=== PATIENT | female | born 1940 | race Caucasian/White ===

== ENCOUNTER 2016-10-21 16:09 | Observation (INO) | payer MEDICARE, OTHER ==
[~2016-10-21] VITALS: Ht 162.6 cm; Wt 80.2 kg
[2016-10-21] MEDS ORDERED: ATENOLOL 25 MG TAB As Ordered ONE (17:35)
[2016-10-21] MEDS ORDERED: LOSARTAN 25 MG TAB As Ordered ONE (17:35)
[2016-10-21 18:04] LABS: BASO # 0.1 K/mm3 (0.0-0.2); BASO % 0.8 % (0.0-1.0); EOS # 0.1 K/mm3 (0.0-0.50); EOS % 1.7 % (0.0-3.0); LARGE UNSTAINED CELL # 0.1 K/mm3 (0.0-0.4); LARGE UNSTAINED CELL % 1.3 % (0.0-4.0); LYMPH # 1.6 K/mm3 (1.5-4.5); LYMPH % 20.3 % (24.0-44.0); MEAN CORPUSCULAR HEMOGLOBIN 27.6 pg (27.0-33.0); MEAN CORPUSCULAR HGB CONC 32.7 g/dl (32.0-36.5); MEAN CORPUSCULAR VOLUME 84.6 fl (80.0-96.0); MONO # 0.5 K/mm3 (0.0-0.8); MONO % 5.9 % (0.0-5.0); NEUTROPHILS # 5.4 K/mm3 (1.8-7.7); PLATELET COUNT, AUTOMATED 373 k/mm3 (150-450); RED CELL DISTRIBUTION WIDTH 13.9 % (11.5-14.5); WHITE BLOOD COUNT 7.7 K/mm3 (4.0-10.0)
--- NOTE | 2016-10-21 18:20 | REPUSA ---
CLINICAL HISTORY: Headache. TECHNIQUE: Multiple axial CT images were obtained through the brain without IV contrast material. COMMENTS: There is normal configuration of sella turcica. There are no intra or extra-axial collections. There is no mass effect or midline shift. There is no evidence of hematoma formation. No hydrocephalus is p resent. The ventricles are symmetrical. No abnormal calcifications are present. There is diffuse age-appropriate cerebellar and cerebral atrophy with proportionally dilated ventricl es and cortical sulci. There are bilateral periventricular and subcortical white matter hypolucencies compatible with mild c hronic microvascular disease. Otherwise, no significant focal abnormalities are seen either in the posterior fossa or supratentoria l compartment. IMPRESSION: 1. Age-appropriate cerebellar and cerebral atrophy. 2. Mild chronic microvascular disease. 3. No evidence of acute intracranial pathology. Thank you for your kind referral of this patient.
[2016-10-21 18:26] LABS: ANION GAP 8 MEQ/L (8-16); BLOOD UREA NITROGEN 11 MG/DL (7-18); CALCIUM LEVEL 8.5 MG/DL (8.8-10.2); CARBON DIOXIDE LEVEL 27 MEQ/L (21-32); CHLORIDE LEVEL 106 MEQ/L (98-107); CREATININE FOR GFR 0.92 MG/DL (0.55-1.02); GLOMERULAR FILTRATION RATE > 60.0 (>39); GLUCOSE, FASTING 96 MG/DL (83-110); SODIUM LEVEL 141 MEQ/L (136-145)
[2016-10-21] MEDS ORDERED: LABETALOL HCL 100 MG/20 ML VIAL As Ordered ONE (19:15)
[2016-10-21] MEDS ORDERED: ZANT1TAB PO ×2 (21:04→21:11)
[2016-10-21] MEDS ORDERED: ATEN25TA PO ×2 (21:04→21:11)
[2016-10-21] MEDS ORDERED: LOSA25TA8 PO ×2 (21:04→21:11)
[2016-10-21] MEDS ORDERED: PROB1TAB PO (21:04)
[2016-10-21] MEDS ORDERED: SYNT100T PO ×2 (21:04→21:11)
[2016-10-21] MEDS ORDERED: PROBCAP14 PO (21:11)
[2016-10-21] MEDS ORDERED: amLODIPine 5 MG TAB PO ONE (21:45)
[2016-10-21] MEDS ORDERED: FAMOTIDINE 20 MG TAB PO PRN (21:45)
[2016-10-21] MEDS ORDERED: hydrALAZINE INJ 20 MG/ML VIAL IV SCH (21:45)
--- NOTE | 2016-10-21 22:10 | HPEPDOC ---
General Date of Admission 10/21/2016 Primary Care Physician: [facility] Attending Physician: AMANDA VINCENT Chief Complaint The patient is a 76-year-old female admitted with a reason for visit of High Blood Pressure. Source: Patient, Family Exam Limitations: No limitations History of Present Illness Ms. Reece is a 76-year-old female with a past history of chronic hypertension and well controlled hypothyroidism who has been suffering from headaches for the past 4 weeks. Originally she presented to her PCPs office, who diagnosed her with hypertension and approximately the 190s/90s. It appears that she has had stable blood pressure for many years prior using just 25 mg of atenolol daily, therefore this seems to have been on precipitated. Originally she was up to 50 mg of atenolol daily for a week, but her pressures were still high in the office, this was split to 25 mg twice a day for a week, but pressures were still high in the office, then losartan 25 mg was also added about one week ago. The losartan was added approximately 1 week ago, but in the past few days in addition to the headaches, now she has had nausea and dry heaves, therefore she decided to come to the emergency department for further evaluation. Her blood pressure in the ED was 215/91, She was given atenolol, losartan, and IV labetalol in the ED with minimal improvement in her blood pressure, and now it is only 191/93 Home Medications Scheduled (Probiotic) 1 Cap Cap 1 CAP PO DAILY (Reported) Atenolol (Atenolol) 25 Mg Tab 25 MG PO BID (Reported) Levothyroxine Sodium (Synthroid) 100 Mcg Tab 100 MCG PO DAILY (Reported) Losartan Potassium (Losartan Potassium) 25 Mg Tab 25 MG PO DAILY (Reported) Scheduled PRN Ranitidine HCl (Zantac) 150 Mg Tab 1 TAB PO DAILY PRN PRN HEARTBURN/INDIGESTION (Reported) Allergies Coded Allergies: Penicillins (Verified Allergy, Mild, HIVES, 12/23/12) Penicillins Cross Reactors (Verified Allergy, Mild, HIVES, 12/23/12) Past Medical History Medical History Chronic essential hypertension Hypothyroidism Occasional GERD Surgical History Hysterectomy in the early Appendectomy Cholecystectomy Pulmonary embolism associated with her hysterectomy, she was on Coumadin for 1 year, she has never had a clot since Family History Family History Mother had a history of breast cancer, at the age of 82. Father had an AR secondary to "leaky valves" he in his early 80s. She has 5 children, 3 girls and 2 boys, all of which are healthy except that one of her daughters at the age of 39 from Jovel sarcoma Social History * Smoker: non-smoker Alcohol: denies Drugs: denies Recent Travel/Sick Contacts: Denies: Recent travel Psychosocial History: No pertinent psych hx Social History She lives at home with her , otherwise she isn't emptying asked her. 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 She does have 1 daughter who still lives in [place] and checks in on her on a regular basis Review of Symptoms Constitutional: Denies: Chills, Fever, Night Sweats Eyes: Denies: Pain, Vision change ENT: Reports: Head Aches, Denies: Dysphagia, Ear Pain Skin: Denies: Breakdown, Lesions, Rash Pulmonary: Denies: Cough, Dyspnea Cardiovascular: Denies: Chest Pain, Edema, Lt Headedness, Orthopnea, Palpitations, Paroxysmal Noc. Dyspnea Gastrointestinal: Reports: Diarrhea (chronic diarrhea many years duration, despite multiple investigations, follows with a tax accounting manager in [place]) , Nausea, Vomiting (dry heaves only), Denies: Abdominal Pain Genitourinary: Denies: Dysuria, Frequency, Incontinence, Retention Hematologic: Denies: Bleeding Excessively, Bruising Musculoskeletal: Denies: Back Pain, Joint Pain, Muscle Pain, Neck Pain, Spasms Neurological: Denies: Change in speech, Confusion, Numbness, Weakness Psych: Reports: Mood Normal, Denies: Depression, Memory Issues Physical Examination General Exam: Positive: Alert, Cooperative, No Acute Distress Eye Exam: Positive: Conjunctiva & lids normal, EOMI, Other Eye Symptoms ( funduscopic exam does not reveal any aneurysms or hemorrhages, no papilledema was appreciated, however the exam was somewhat limited by patient movement), PERRLA, Negative: Sclera icteric ENT Exam: Positive: Atraumatic, Mucous membr. moist/pink, Pharynx Normal Neck Exam: Positive: Supple, Negative: JVD, thyromegaly Chest Exam: Positive: Clear to auscultation, Normal air movement Heart Exam: Positive: Normal S1, Normal S2, Rate Normal, Regular Rhythm, Negative: Murmurs, Rubs Telemetry: Positive: No significant arrhythmia Abdomen Exam: Positive: Normal bowel sounds, Soft, Negative: Hepatospenomegaly Extremity Exam: Positive: Normal pulses, Negative: Clubbing, Cyanosis, Edema Skin Exam: Positive: Nl turgor and temperature, Negative: Breakdown, Lesion Neuro Exam: Positive: Cranial Nerves 3-12 NL, Normal Speech, Normal Tone Psych Exam: Positive: Mental status NL, Mood NL, Oriented x 3 Vital Signs Blood pressure 191/93, pulse 78, respirations 18, temperature 98.4, pulse ox 94 % on room air, weight 84 kg, height 5 feet 4 inches, BMI 32 Laboratory Data Labs 24H Laboratory Tests 2 10/21/16 17:35: Anion Gap 8, White Blood Count 7.7, Red Blood Count 5.05, Hemoglobin 13.9, Hematocrit 42.7, Mean Corpuscular Volume 84.6, Mean Corpuscular Hemoglobin 27.6 , Mean Corpuscular Hemoglobin Concent 32.7, Red Cell Distribution Width 13.9, Platelet Count 373, Neutrophils (%) (Auto) 70.0H, Lymphocytes (%) (Auto) 20.3L, Monocytes (%) (Auto) 5.9H, Eosinophils (%) (Auto) 1.7, Basophils (%) (Auto) 0.8 , Neutrophils # (Auto) 5.4, Lymphocytes # (Auto) 1.6, Monocytes # (Auto) 0.5, Eosinophils # (Auto) 0.1, Basophils # (Auto) 0.1, Blood Urea Nitrogen 11, Creatinine 0.92, Sodium Level 141, Potassium Level 4.0, Chloride Level 106, Carbon Dioxide Level 27, Calcium Level 8.5L, Glomerular Filtration Rate > 60.0, Large Unclassified Cells # 0.1, Large Unclassified Cells % 1.3 CBC/BMP Laboratory Tests 10/21/16 17:35 Calcium Level 8.5 L, Red Blood Count 5.05, Mean Corpuscular Volume 84.6, Mean Corpuscular Hemoglobin 27.6, Mean Corpuscular Hemoglobin Concent 32.7, Red Cell Distribution Width 13.9, Neutrophils (%) (Auto) 70.0 H, Lymphocytes (%) (Auto) 20.3 L, Monocytes (%) (Auto) 5.9 H, Eosinophils (%) (Auto) 1.7, Basophils (%) ( Auto) 0.8, Neutrophils # (Auto) 5.4, Lymphocytes # (Auto) 1.6, Monocytes # (Auto ) 0.5, Eosinophils # (Auto) 0.1, Basophils # (Auto) 0.1 Assessment/Plan Problems: (1) Accelerated hypertension Status: Acute (2) Essential hypertension Status: Chronic (3) Hypothyroidism Status: Chronic (4) History of gastroesophageal reflux (GERD) Status: Chronic Plan / VTE VTE Prophylaxis Ordered?: Yes (Lovenox) Plan Plan Will admit the patient to [facility]. We'll also had Norvasc to her regimen, and give her IV hydralazine every 4 hours with hold parameters to hold for systolic less than 165. We do not wish to precipitously drop her blood pressure at this time. We'll also order a Doppler renal ultrasound as well as an aldosterone/ renin ratio, and a UA to determine if there are any secondary causes of her acutely elevated blood pressure. The patient does have a book at home with all of her prior medications that she is taken, and she believes that she has attempted multiple medications in the past for high blood pressure, but this was a long time ago. The patient's daughter has gone to fetch this book. When this arrives, we will compare it with her current plan and make adjustments as necessary. GME ATTESTATION GME ATTESTATION My preceptor for this patient encounter was physically present in the building during the encounter and was fully available. As needed, all aspects of the patient interview, examination, medical decision making process, and medical care plan development were reviewed and approved by the preceptor. Preceptor is aware and concurs with the plan as stated in the body of this note and will attest to such by his/her cosignature. ATTENDING NOTE I, Amanda Vincent, have seen and examined the above patient and agree with the assessment and plan as documented by Dr. Johnson. The patient will be placed in observation status on the service of Dr. Rodriguez. Of note, the patient's blood pressure has been elevated to over 190 for the past 4 weeks. The patient has had multiple visits with her PCP over the last several weeks for this issue, and reports that the blood pressure has persistently been this high. She does not currently have any chest pain, or symptoms that be suggestive of a stroke. An EKG is unremarkable, and a CT of her head is also unremarkable. Given that her elevated blood pressure is long- standing and not acute, and given that she does not have any evidence of end organ damage, I do not see a need to acutely lower her blood pressure. We will certainly continue to work on improving a chronic regimen that will further control her blood pressure, but given that it has been quite elevated for quite a while, I do not even think that it is safe to currently bring her down to normal range. Certainly would not want to drop her below systolics of approximately 160 at this point. The main reason that we have agreed to place her in observation status, is in an effort to improve her headache. She does not have any vomiting, so I don't think that this represents increased intracranial pressure, which affirms my prior position that there is no need to acutely lower her blood pressure. ARSLAN JOHNSON DO Oct 21, 2016 22:10 AMANDA VINCENT Oct 22, 2016 00:26
[2016-10-21] MEDS ORDERED: hydrALAZINE INJ 20 MG/ML VIAL As Ordered ONE (22:19)
[2016-10-21] MEDS ORDERED: ACETAMINOPHEN 325 MG TAB As Ordered ONE (22:24)
[2016-10-22] MEDS ORDERED: FAMOTIDINE 20 MG TAB PO PRN (00:30)
[2016-10-22] MEDS ORDERED: ACETAMINOPHEN 325 MG TAB As Ordered ONE (03:28)
--- NOTE | 2016-10-22 03:55 | EDDOCDS ---
Nurse's Notes [facility] Name: Erika Reece Age: 76 yrs Sex: Female : 1940 Arrival Date: 10/21/2016 Time: 16:09 Bed Admit Hold Private MD: Ponce Jauregui Diagnosis: Essential (primary) hypertension-Hypertensive Urgency Presentation: 10/21 16:17 Presenting complaint: Patient states: pounding MELTON for past [address] heather Jauregui and medications changed, losartan started this past Sunday pt nauseous since then. Adult Sepsis Screening: The patient does not have new or worsening altered mentation. Patient's respiratory rate is less than 22. Systolic blood pressure is greater than 100. Patient has a qSOFA score of 0- Negative Sepsis Screen. Suicide/Homicide risk assessment- the patient denies having any suicidal and/or homicidal ideations and does not present with any other emotional, behavioral or mental health complaints. Status: Patient is not a sales and service consultant or dependent. Transition of care: patient was not received from another setting of care. 16:17 Acuity: KARL Level 3 jjr 16:17 Method Of Arrival: Walkin/Carried/Asstd jjr Triage Assessment: 16:21 General: Appears in no apparent distress. Pain: Location: right frontal area and right jjr temporal area. Neurological: No deficits noted. Reports headache. 23:15 Cardiovascular: Rhythm is sinus rhythm No ectopy. tm5 Historical: - Allergies: PENICILLINS (Rash); - Home Meds: 1. levothyroxine 100 mcg Oral cap 1 cap once daily 2. atenolol 25 mg Oral tab 1 tab 2 times per day 3. losartan 25 mg oral tab 1 tab once daily 4. Zantac 150 mg Oral cap prn - PMHx: Hypertension; Hypothyroidism; - PSHx: Hysterectomy; Appendectomy; - Social history: Smoking status: Patient states former smoker of tobacco. No barriers to communication noted, The patient speaks fluent Setswana. - Family history: Not pertinent. - : The pt / caregiver states he / she is not on anticoagulants. Home medication list is obtained from the patient. - Exposure Risk Screening:: None identified. Screenin:57 Screening information is obtained from the patient. Fall risk: No risks identified. hs1 Assistance ADL's: requires no assistance with activities of daily living. Abuse/DV Screen: The patient / caregiver reports he/she is: not in a situation that causes fear, pain or injury. Nutritional screening: No deficits noted. Advance Directives: There is no active DNR order. home support is adequate. Assessment: 17:30 General: Appears in no apparent distress, Behavior is appropriate for age, cooperative. hs1 Pain: Location: headache Pain currently is 4 out of 10 on a pain scale. Quality of pain is described as throbbing. Neurological: No deficits noted. Cardiovascular: No deficits noted. Respiratory: Airway is patent Respiratory effort is even, unlabored, Respiratory pattern is regular, symmetrical. Derm: Skin is pink, warm & dry. normal. 18:12 General: Appears in no apparent distress, comfortable, Behavior is appropriate for age, ttb cooperative, pleasant. Pain: Location: face Quality of pain is described as dull. Neurological: Level of Consciousness is awake, alert, Denies blurred vision numbness. Cardiovascular: Rhythm is sinus rhythm No ectopy. Chest pain is denied. Respiratory: Airway is patent Respiratory effort is even, unlabored, Respiratory pattern is regular, symmetrical, Denies cough, shortness of breath. GI: Reports nausea, improved since arrival. Denies need for med at this time. 19:08 General: report given to MIKE Chambers to continue care. Pt continues to rest on ttb stretcher with at bedside. NAD noted. SR on monitor. . 19:15 Reassessment: Patient appears in no apparent distress at this time. Patient states tm5 symptoms have not improved. pt still complains of Headache denies the need for pain meds at this time, Blood pressure still elevated, aware of this . 19:15 Cardiovascular: Rhythm is sinus rhythm No ectopy. Chest pain is denied. tm5 19:52 General: PT AWARE THAT SHE IS GOING TO BE ADMITTED TO THE HOSPITAL TO BETTER CONTROL tm5 HER BLOOD PRESSURE . 22:20 Reassessment: Patient appears in no apparent distress at this time. Patient states tm5 feeling better. Patient states symptoms have improved. family at bedside, pt voices no complaints of at this time . Cardiovascular: Rhythm is sinus rhythm No ectopy. 22:20 Pain: Denies pain. tm5 23:25 General: Spoke with Dr Mcghee regarding pt blood pressure of 173/75 and concern pt not sls1 able to go to Med Surg unit, per Dr Mcghee pt has had known hypertension for 4 weeks, and feels that a blood pressure of 173/75 is stable for pt to go to Med Surg. 10/22 00:49 Reassessment: Patient appears in no apparent distress at this time. pt resting quietly tm5 with eyes closed, resp easy, no s/s of any distress . Cardiovascular: Rhythm is sinus rhythm. 01:56 General: pt ambulated to the bathroom & back with steady gait, voices no complaints at tm5 this time, pt was placed into Hospital bed for holding admission in ER, pt appears very comfortable at this time, lights off & door closed per pt's request. 03:24 Reassessment: pt still complains of slight headache is asking for more Tylenol at this tm5 time . 03:30 General: SBAR was faxed & tubed to [facility] floor . tm5 03:44 General: [facility] ready for pt . tm5 Vital Signs: 10/21 16:11 BP 215 / 91; Pulse 89; Resp 18 S; Temp 98.4(O); Pulse Ox 96% on R/A; Weight 83.91 kg dd6 (R); Height 5 ft. 4 in. (162.56 cm) (R); 16:32 BP 178 / 100 LA Sitting (man/reg); ct3 16:32 BP 192 / 100 RA Sitting (man/reg); ct3 18:08 BP 210 / 103 (auto/); ttb 18:08 Pulse 74 MON; Resp 18; Pulse Ox 95% on R/A; Pain 1/10; ttb 18:33 BP 217 / 109 (auto/); tm5 18:33 Pulse 74 MON; Pulse Ox 95% ; tm5 19:03 BP 215 / 100 (auto/); tm5 19:03 Pulse 72 MON; Resp 18; Pulse Ox 94% on R/A; Pain 6/10; tm5 19:17 BP 214 / 107 (auto/); tm5 19:17 Pulse 72 MON; Resp 20 S; Pulse Ox 96% on R/A; Pain 6/10; tm5 19:33 BP 199 / 92 (auto/); tm5 19:33 Pulse 78 MON; Resp 18 S; Pulse Ox 96% on R/A; tm5 20:03 BP 191 / 93 (auto/); tm5 20:03 Pulse 78 MON; Pulse Ox 94% ; tm5 20:33 BP 195 / 95 (auto/); tm5 20:33 Pulse 76 MON; Resp 18 S; Pulse Ox 94% on R/A; Pain 6/10; tm5 21:33 BP 193 / 95 (auto/); tm5 21:33 Pulse 80 MON; Pulse Ox 95% ; tm5 22:03 BP 181 / 88 (auto/); tm5 22:03 Pulse 76 MON; Resp 20 S; Pulse Ox 96% on R/A; Pain 6/10; tm5 22:33 BP 187 / 91 (auto/); tm5 22:33 Pulse 82 MON; Pulse Ox 95% ; tm5 22:48 BP 191 / 90 (auto/); tm5 22:49 Pulse 78 MON; Resp 20 S; Pulse Ox 96% on R/A; Pain 4/10; tm5 23:03 BP 188 / 89 (auto/); tm5 23:03 Pulse 80 MON; Resp 20 S; Pulse Ox 95% on R/A; Pain 4/10; tm5 23:18 BP 173 / 75 (auto/); sls1 23:18 Pulse 78 MON; Pulse Ox 94% ; sls1 23:33 BP 156 / 76 (auto/); tm5 23:33 Pulse 76 MON; Pulse Ox 94% ; tm5 23:48 BP 154 / 82 (auto/); tm5 23:48 Pulse 76 MON; Resp 18 S; Pulse Ox 94% on R/A; Pain 4/10; tm5 10/22 00:03 BP 147 / 80 (auto/); tm5 00:04 Pulse 76 MON; Resp 20 S; Pulse Ox 94% on R/A; Pain 4/10; tm5 00:18 BP 155 / 86 (auto/); tm5 00:19 Pulse 78 MON; Pulse Ox 94% ; tm5 00:33 BP 150 / 79 (auto/); tm5 00:34 Pulse 76 MON; Pulse Ox 93% ; tm5 00:48 BP 138 / 79 (auto/); tm5 00:49 Pulse 76 MON; Resp 18 S; Pulse Ox 94% on R/A; tm5 01:03 BP 141 / 85 (auto/); tm5 01:04 Pulse 78 MON; Resp 20 S; Pulse Ox 94% on R/A; Pain 3/10; tm5 03:03 BP 118 / 58 (auto/); Pulse 74; Resp 20; Temp 98.3(O); Pulse Ox 98% on R/A; Pain 4/10; tm5 03:03 BP 122 / 58; Pulse 76; Resp 18; Pulse Ox 99% on R/A; Pain 4/10; tm5 03:43 BP 132 / 57; Pulse 74; Resp 20; tm5 10/21 16:11 Body Mass Index 31.75 (83.91 kg, 162.56 cm) dd6 Vitals: 10/21 16:11 Log In Time: October 21, 2016 at 16:09. dd6 ED Course: 16:10 Patient visited by Ben Phillips PCA. dd6 16:10 Ponce Jauregui MD is Private Physician. dd6 16:10 Patient moved to Waiting dd6 16:12 Patient moved to Pre RCE dd6 16:19 Triage Initiated jjr 16:33 Patient visited by Donna Shirley PCA. ct3 16:42 Thad Valdes MD is Attending Physician. br1 16:43 Deepthi Simpson,MIKE is Primary Nurse. br1 16:43 Patient moved to 14 br1 16:56 Patient visited by Thad Valdes MD. br1 17:41 BMP Sent. dls 17:41 CBC with Diff Sent. dls 17:41 Inserted saline lock: 20 gauge in right antecubital area and blood collected. The dls patient tolerated the procedure well. started by Ish Fontaine RN. 17:43 EKG done. (by ED staff). Reviewed by Thad Valdes MD. jrd 17:56 Patient visited by Meredith Fontaine RN. hs1 18:00 The patient / caregiver is instructed regarding the plan of care and ED course. hs1 18:12 Accompanied by Significant Other, Patient has correct armband on for positive ttb identification. Placed in gown. chin strap maker on. Pulse ox on. NIBP on. 18:14 Patient visited by Demetria Quinonez RN. ttb 18:21 CT Head Without Contrast Returned. EDMS 19:08 Patient visited by Demetria Quinonez RN. ttb 19:22 Patient visited by Chelo Prakash RN. tm5 19:47 [facility] Payment Agreement was scanned into [employer] and attached to record. zo 19:48 Patient visited by Chelo Prakash RN. tm5 19:48 ED physician to see patient. tm5 19:51 Patient name changed from Erika\S\M\S\Valvo\S\ to Erika\S\ \S\Valvo. EDMS 20:18 Patient visited by Chelo Prakash RN. tm5 20:21 Amanda Vincent is Hospitalizing Provider. br1 20:[address] Jordan at bedside for eval. tm5 22:51 Patient visited by Chelo Prakash RN. tm5 22:57 Primary Nurse role handed off by Deepthi Simpson RN ms18 23:26 Patient visited by Sandra Knutson RN. sls1 23:30 Patient visited by Chelo Prakash RN. tm5 23:59 Patient moved to Admit Hold sls1 10/22 00:14 Awaiting bed assignment. tm5 00:14 No procedures done that require assistance. tm5 00:51 Patient visited by Chelo Prakash RN. tm5 00:52 Patient visited by Chelo Prakash RN. tm5 01:56 Patient visited by Chelo Prakash RN. tm5 02:56 Patient visited by Chelo Prakash RN. tm5 03:23 Patient visited by Chelo Prakash RN. tm5 03:43 Patient visited by Chelo Prakash RN. tm5 Administered Medications: 10/21 17:38 Drug: Atenolol 25 mg [atenolol 25 mg tablet (1 tabs)] Route: PO; pml 19:23 Follow up: Response: Blood pressure is unchanged; No Adverse Reaction tm5 17:38 Drug: Losartan 25 mg [losartan 25 mg tablet (1 tabs)] Route: PO; pml 19:23 Follow up: Response: Blood pressure is unchanged; No Adverse Reaction tm5 19:23 Drug: Labetalol 10 mg [labetalol 5 mg/mL intravenous solution (2 mL)] Route: IVP; Rate: tm5 bolus; Infused Over: 2 mins; Site: right antecubital; 19:51 Follow up: Response: Blood pressure is improved; No Adverse Reaction tm5 22:23 Drug: hydrALAZINE 5 mg [hydralazine 20 mg/mL injection solution] Route: IV; Rate: tm5 bolus; Site: right antecubital; 23:03 Follow up: Response: Blood pressure is unchanged; No Adverse Reaction :28 Drug: Acetaminophen 650 mg [acetaminophen 325 mg tablet (2 tabs)] Route: PO; tm5 23:04 Follow up: Response: No Adverse Reaction; Pain is decreased 5 10/22 03:30 Drug: Acetaminophen 650 mg [acetaminophen 325 mg tablet (2 tabs)] Route: PO; tm5 03:30 Follow up: Response: Pt left department before re-evaluation is appropriate tm5 Order Results: Lab Order: CBC with Diff; SPEC'M 10/21/16 17:35 Test: WHITE BLOOD COUNT; Value: 7.7; Range: 4.0-10.0; Units: K/mm3; Status: F Test: RED BLOOD COUNT; Value: 5.05; Range: 4.00-5.40; Units: M/mm3; Status: F Test: HEMOGLOBIN; Value: 13.9; Range: 12.0-16.0; Units: g/dl; Status: F Test: HEMATOCRIT; Value: 42.7; Range: 36.0-47.0; Units: %; Status: F Test: MEAN CORPUSCULAR VOLUME; Value: 84.6; Range: 80.0-96.0; Units: fl; Status: F Test: MEAN CORPUSCULAR HEMOGLOBIN; Value: 27.6; Range: 27.0-33.0; Units: pg; Status: F Test: MEAN CORPUSCULAR HGB CONC; Value: 32.7; Range: 32.0-36.5; Units: g/dl; Status: F Test: RED CELL DISTRIBUTION WIDTH; Value: 13.9; Range: 11.5-14.5; Units: %; Status: F Test: PLATELET COUNT, AUTOMATED; Value: 373; Range: 150-450; Units: k/mm3; Status: F Test: NEUTROPHILS %; Value: 70.0; Range: 36.0-66.0; Abnormal: Above high normal; Units: %; Status: F Test: LYMPH %; Value: 20.3; Range: 24.0-44.0; Abnormal: Below low normal; Units: %; Status: F Test: MONO %; Value: 5.9; Range: 0.0-5.0; Abnormal: Above high normal; Units: %; Status: F Test: EOS %; Value: 1.7; Range: 0.0-3.0; Units: %; Status: F Test: BASO %; Value: 0.8; Range: 0.0-1.0; Units: %; Status: F Test: LARGE UNSTAINED CELL %; Value: 1.3; Range: 0.0-4.0; Units: %; Status: F Test: NEUTROPHILS #; Value: 5.4; Range: 1.8-7.7; Units: K/mm3; Status: F Test: LYMPH #; Value: 1.6; Range: 1.5-4.5; Units: K/mm3; Status: F Test: MONO #; Value: 0.5; Range: 0.0-0.8; Units: K/mm3; Status: F Test: EOS #; Value: 0.1; Range: 0.0-0.50; Units: K/mm3; Status: F Test: BASO #; Value: 0.1; Range: 0.0-0.2; Units: K/mm3; Status: F Test: LARGE UNSTAINED CELL #; Value: 0.1; Range: 0.0-0.4; Units: K/mm3; Status: F Lab Order: [facility]; SPEC'M 10/21/16 17:35 Test: GLUCOSE, FASTING; Value: 96; Range: 83-110; Units: MG/DL; Status: F Test: BLOOD UREA NITROGEN; Value: 11; Range: 7-18; Units: MG/DL; Status: F Test: CREATININE FOR GFR; Value: 0.92; Range: 0.55-1.02; Units: MG/DL; Status: F Test: GLOMERULAR FILTRATION RATE; Value: > 60.0; Range: >39; Status: F Test: SODIUM LEVEL; Value: 141; Range: 136-145; Units: MEQ/L; Status: F Test: POTASSIUM SERUM; Value: 4.0; Range: 3.5-5.1; Units: MEQ/L; Status: F Test: CHLORIDE LEVEL; Value: 106; Range: 98-107; Units: MEQ/L; Status: F Test: CARBON DIOXIDE LEVEL; Value: 27; Range: 21-32; Units: MEQ/L; Status: F Test: ANION GAP; Value: 8; Range: 8-16; Units: MEQ/L; Status: F Test: CALCIUM LEVEL; Value: 8.5; Range: 8.8-10.2; Abnormal: Below low normal; Units: MG/DL; Status: F Test Note: ; Units are mL/min/1.73 m2 Chronic Kidney Disease Staging per NKF: Stage I & II GFR >=60 Normal to Mildly Decreased Stage III GFR 30-59 Moderately Decreased Stage IV GFR 15-29 Severely Decreased Stage V GFR <15 Very Little GFR Left ESRD GFR <15 on RUBBER COMPOUNDER SUPERVISOR Radiology Order: CT Head Without Contrast Test: CT Head Without Contrast REASON FOR EXAMINATION: headache, htn eval for ich; ; CLINICAL HISTORY: Headache.; TECHNIQUE: Multiple axial CT images were obtained through the brain without IV contrast material.; COMMENTS:; There is normal configuration of sella turcica. There are no intra or extra-axial collections. There; is no mass effect or midline shift. There is no evidence of hematoma formation. No hydrocephalus is p; resent. The ventricles are symmetrical. No abnormal calcifications are present.; There is diffuse age-appropriate cerebellar and cerebral atrophy with proportionally dilated ventricl; es and cortical sulci.; There are bilateral periventricular and subcortical white matter hypolucencies compatible with mild c; hronic microvascular disease.; Otherwise, no significant focal abnormalities are seen either in the posterior fossa or supratentoria; l compartment.; IMPRESSION:; 1. 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 Mild chronic microvascular disease.; 3. No evidence of acute intracranial pathology.; Thank you for your kind referral of this patient.; ; ; Outcome: 10/21 20:21 Decision to Hospitalize by Provider. br1 10/22 00:13 CT Study completed. tm5 00:14 Discharge Assessment: patient administered narcotics - no. tm5 03:31 The following High Risk Discharge criteria are identified: None. Admitted to Med/Surg tm5 accompanied by tech, via stretcher, with chart. Condition: good Condition: stable Condition: improved. Property :Personal belongings accompany Pt. 03:54 Patient left the ED. tm5 Signatures: Dispatcher [employer] EDMS Vesna Luna, RN RN Sarmad Andrade Brian, MD MD br1 Nanette Maciel, RN RN jjr Ben Phillips, HOOP PUNCH OPERATOR HELPER HOOP PUNCH OPERATOR HELPER dd6 Meredith Fontaine, RN RN hs1 Fern, Donna, HOOP PUNCH OPERATOR HELPER HOOP PUNCH OPERATOR HELPER ct3 Eamon, Sandra, RN RN sls1 Chelsea DurandRN Demetria Cr, RN RN tteDepthi Gutierrez,RN RN ms18 Romain Farmer, HOOP PUNCH OPERATOR HELPER HOOP PUNCH OPERATOR HELPER jrd Chelo Prakash,RN RN tm5 MTDD
--- NOTE | 2016-10-22 03:55 | EDDOCDS ---
Physician Documentation [facility] Name: Erika Reece Age: 76 yrs Sex: Female : 1940 Arrival Date: 10/21/2016 Time: 16:09 Bed Admit Hold Private MD: Ponce Jauregui Disposition: 10/21/16 20:21 Hospitalization ordered by Amanda Vincent for Inpatient Admission. Preliminary diagnosis is Essential (primary) hypertension - Hypertensive Urgency. - Bed requested for 5 Bernard. - Status is Inpatient Admission. tm5 - Condition is Stable. - Problem is new. - Symptoms are unchanged. Historical: - Allergies: PENICILLINS (Rash); - Home Meds: 1. levothyroxine 100 mcg Oral cap 1 cap once daily 2. atenolol 25 mg Oral tab 1 tab 2 times per day 3. losartan 25 mg oral tab 1 tab once daily 4. Zantac 150 mg Oral cap prn - PMHx: Hypertension; Hypothyroidism; - PSHx: Hysterectomy; Appendectomy; - Social history: Smoking status: Patient states former smoker of tobacco. No barriers to communication noted, The patient speaks fluent Kinyarwanda. - Family history: Not pertinent. - : The pt / caregiver states he / she is not on anticoagulants. Home medication list is obtained from the patient. - Exposure Risk Screening:: None identified. Vital Signs: 10/21 16:11 BP 215 / 91; Pulse 89; Resp 18 S; Temp 98.4(O); Pulse Ox 96% on R/A; Weight 83.91 kg / dd6 184.99 lbs (R); Height 5 ft. 4 in. (162.56 cm) (R); 16:32 BP 178 / 100 LA Sitting (man/reg); ct3 16:32 BP 192 / 100 RA Sitting (man/reg); ct3 18:08 BP 210 / 103 (auto/); ttb 18:08 Pulse 74 MON; Resp 18; Pulse Ox 95% on R/A; Pain 1/10; ttb 18:33 BP 217 / 109 (auto/); tm5 18:33 Pulse 74 MON; Pulse Ox 95% ; tm5 19:03 BP 215 / 100 (auto/); tm5 19:03 Pulse 72 MON; Resp 18; Pulse Ox 94% on R/A; Pain 6/10; tm5 19:17 BP 214 / 107 (auto/); tm5 19:17 Pulse 72 MON; Resp 20 S; Pulse Ox 96% on R/A; Pain 6/10; tm5 19:33 BP 199 / 92 (auto/); tm5 19:33 Pulse 78 MON; Resp 18 S; Pulse Ox 96% on R/A; tm5 20:03 BP 191 / 93 (auto/); tm5 20:03 Pulse 78 MON; Pulse Ox 94% ; tm5 20:33 BP 195 / 95 (auto/); tm5 20:33 Pulse 76 MON; Resp 18 S; Pulse Ox 94% on R/A; Pain 6/10; tm5 21:33 BP 193 / 95 (auto/); tm5 21:33 Pulse 80 MON; Pulse Ox 95% ; tm5 22:03 BP 181 / 88 (auto/); tm5 22:03 Pulse 76 MON; Resp 20 S; Pulse Ox 96% on R/A; Pain 6/10; tm5 22:33 BP 187 / 91 (auto/); tm5 22:33 Pulse 82 MON; Pulse Ox 95% ; tm5 22:48 BP 191 / 90 (auto/); tm5 22:49 Pulse 78 MON; Resp 20 S; Pulse Ox 96% on R/A; Pain 4/10; tm5 23:03 BP 188 / 89 (auto/); tm5 23:03 Pulse 80 MON; Resp 20 S; Pulse Ox 95% on R/A; Pain 4/10; tm5 23:18 BP 173 / 75 (auto/); sls1 23:18 Pulse 78 MON; Pulse Ox 94% ; sls1 23:33 BP 156 / 76 (auto/); tm5 23:33 Pulse 76 MON; Pulse Ox 94% ; tm5 23:48 BP 154 / 82 (auto/); tm5 23:48 Pulse 76 MON; Resp 18 S; Pulse Ox 94% on R/A; Pain 4/10; tm5 10/22 00:03 BP 147 / 80 (auto/); tm5 00:04 Pulse 76 MON; Resp 20 S; Pulse Ox 94% on R/A; Pain 4/10; tm5 00:18 BP 155 / 86 (auto/); tm5 00:19 Pulse 78 MON; Pulse Ox 94% ; tm5 00:33 BP 150 / 79 (auto/); tm5 00:34 Pulse 76 MON; Pulse Ox 93% ; tm5 00:48 BP 138 / 79 (auto/); tm5 00:49 Pulse 76 MON; Resp 18 S; Pulse Ox 94% on R/A; tm5 01:03 BP 141 / 85 (auto/); tm5 01:04 Pulse 78 MON; Resp 20 S; Pulse Ox 94% on R/A; Pain 3/10; tm5 03:03 BP 118 / 58 (auto/); Pulse 74; Resp 20; Temp 98.3(O); Pulse Ox 98% on R/A; Pain 4/10; tm5 03:03 BP 122 / 58; Pulse 76; Resp 18; Pulse Ox 99% on R/A; Pain 4/10; tm5 03:43 BP 132 / 57; Pulse 74; Resp 20; tm5 10/21 16:11 Body Mass Index 31.75 (83.91 kg, 162.56 cm) dd6 MDM: 10/21 16:57 IV Saline Lock ordered. br1 16:57 Stump Blower/Pulse Ox/q 30 min VS ordered. br1 16:57 Atenolol 25 mg PO once ordered. br1 16:57 Losartan 25 mg PO once ordered. br1 16:59 CBC with Diff Ordered. EDMS 16:59 BMP Ordered. EDMS 16:59 ECG WITH READING ER PHYS+CARDIAG ordered. EDMS 16:59 CT Head Without Contrast Ordered. EDMS 18:08 CBC with Diff Reviewed. br1 19:14 Labetalol 10 mg IVP at bolus once over 2 mins ordered. br1 19:14 BMP Reviewed. br1 19:14 CT Head Without Contrast Reviewed. br1 19:18 Financial registration complete. zo 19:47 [facility] Payment Agreement was scanned into [employer] and attached to record. zo 19:50 BED REQUEST+ADM ordered. EDMS 21:35 Admission / Observation Status ordered. EDMS 21:50 ALDOSTERONE/RENIN RATIO Ordered. EDMS 21:50 URINALYSIS Ordered. EDMS 21:50 BASIC METABOLIC PROFILE Ordered. EDMS 21:52 RENAL US Ordered. EDMS 21:52 RENAL DOPPLER FLOW Ordered. EDMS 21:52 REGULAR DIET ordered. EDMS 22:18 hydrALAZINE 5 mg IV at bolus once ordered. tm5 22:28 Acetaminophen Tablet 650 mg PO once ordered. tm5 01/29 02:32 Admission / Observation Status ordered. EDMS 02:53 Admission / Observation Status ordered. EDMS 03:23 Acetaminophen Tablet 650 mg PO once ordered. tm5 Administered Medications: 10/21 17:38 Drug: Atenolol 25 mg [atenolol 25 mg tablet (1 tabs)] Route: PO; pml 19:23 Follow up: Response: Blood pressure is unchanged; No Adverse Reaction tm5 17:38 Drug: Losartan 25 mg [losartan 25 mg tablet (1 tabs)] Route: PO; pml 19:23 Follow up: Response: Blood pressure is unchanged; No Adverse Reaction tm5 19:23 Drug: Labetalol 10 mg [labetalol 5 mg/mL intravenous solution (2 mL)] Route: IVP; Rate: tm5 bolus; Infused Over: 2 mins; Site: right antecubital; 19:51 Follow up: Response: Blood pressure is improved; No Adverse Reaction tm5 22:23 Drug: hydrALAZINE 5 mg [hydralazine 20 mg/mL injection solution] Route: IV; Rate: tm5 bolus; Site: right antecubital; 23:03 Follow up: Response: Blood pressure is unchanged; No Adverse Reaction tm5 22:28 Drug: Acetaminophen 650 mg [acetaminophen 325 mg tablet (2 tabs)] Route: PO; tm5 23:04 Follow up: Response: No Adverse Reaction; Pain is decreased tm5 10/22 03:30 Drug: Acetaminophen 650 mg [acetaminophen 325 mg tablet (2 tabs)] Route: PO; tm5 03:30 Follow up: Response: Pt left department before re-evaluation is appropriate tm5 Signatures: Dispatcher [employer] EDLA Camille Kwok RN RN Sarmad Guzmán Brian, MD MD br1 Nanette Maciel RN RN Demetria Gomez RN RN ttb Matice, Tonya, RN RN tm5 Chelsea Durand RN The chart was reviewed and I authenticate all verbal orders and agree with the evaluation and treatment provided.Attachments: 10/21 19:47 [facility] Payment Agreement zo MTDD
[2016-10-22 04:10] VITALS: BP_SYST 156; BP_SYST 173; BP_DIAS 74; BP_DIAS 81
[2016-10-22] MEDS: LEVOTHYROXINE 0.1 MG TAB (100 MCG) PO SCH (05:52)
[2016-10-22 06:00] VITALS: BP 160/74
[2016-10-22 06:22] LABS: ANION GAP 9 MEQ/L (8-16); BLOOD UREA NITROGEN 12 MG/DL (7-18); CALCIUM LEVEL 8.4 MG/DL (8.8-10.2); CARBON DIOXIDE LEVEL 26 MEQ/L (21-32); CHLORIDE LEVEL 107 MEQ/L (98-107); CREATININE FOR GFR 0.94 MG/DL (0.55-1.02); GLOMERULAR FILTRATION RATE > 60.0 (>39); GLUCOSE, FASTING 94 MG/DL (83-110); POTASSIUM SERUM 3.6 MEQ/L (3.5-5.1); SODIUM LEVEL 142 MEQ/L (136-145)
[2016-10-22] MEDS ORDERED: AMLO10TA PO (06:54)
[2016-10-22] MEDS ORDERED: amLODIPine 5 MG TAB PO SCH (09:00)
[2016-10-22] MEDS ORDERED: LOSARTAN 25 MG TAB PO SCH (09:00)
[2016-10-22] MEDS ORDERED: amLODIPine 5 MG TAB PO ONE (09:00)
[2016-10-22] MEDS ORDERED: ACETAMINOPHEN TAB 650MG DOSE (2X325MG) PO ONE (09:30)
[2016-10-22] MEDS: LACTOBACILLUS ACIDOPHILUS CAP (BACID) PO SCH (10:07)
[2016-10-22] MEDS: ATENOLOL 25 MG TAB PO SCH ×2 (10:09→21:46)
[2016-10-22] MEDS: amLODIPine 10 MG TAB PO SCH (10:10)
[2016-10-22] MEDS: ENOXAPARIN 40 MG/0.4 ML SYRINGE (J1650) SC SCH (10:10)
[2016-10-22] MEDS ORDERED: cloNIDine 0.2 MG TAB PO ONE (12:00)
[2016-10-22 14:00] VITALS: BP 109/69
[2016-10-22] MEDS: ACETAMINOPHEN TAB 650MG DOSE (2X325MG) PO PRN ×2 (14:34→19:55)
--- NOTE | 2016-10-22 15:41 | ECGEPIP ---
Stationary ECG Study [facility] - ED Test Date: 2016-10-21 Pat Name: ABHI MÁRQUEZ Department: Room: - Gender: F Search Engine Optimization Analyst: fazal : 1940 Requested By: TAJ Grayson Order Number: [id number] Reading MD: Celia Neville Measurements Intervals [place] Rate: 72 P: 44 PA: 191 QRS: 5 QRSD: 83 T: 27 QT: 401 QTc: 440 Interpretive Statements SINUS RHYTHM NONSPECIFIC ST & T-WAVE ABNORMALITY NO PRIOR FOR COMPARISON Electronically Signed On 10-22-2016 15:41:27 EST by Celia Neville
[2016-10-22 16:00] VITALS: BP 110/60
[2016-10-22] MEDS: cloNIDine 0.1 MG TAB PO SCH ×2 (16:00→21:46)
[2016-10-22 22:00] VITALS: BP 112/56
[2016-10-23] MEDS: ACETAMINOPHEN TAB 650MG DOSE (2X325MG) PO PRN (03:10)
[2016-10-23] MEDS: cloNIDine 0.1 MG TAB PO SCH ×2 (03:11→08:24)
[2016-10-23] MEDS: LEVOTHYROXINE 0.1 MG TAB (100 MCG) PO SCH (05:43)
[2016-10-23 06:00] VITALS: BP 137/69
[2016-10-23 06:44] LABS: CALCIUM LEVEL 8.2 MG/DL (8.8-10.2); CREATININE FOR GFR 0.99 MG/DL (0.55-1.02); GLOMERULAR FILTRATION RATE 58.4 (>39)
[2016-10-23] MEDS ORDERED: LOSA50TA20 PO (06:44)
[2016-10-23] MEDS: ATENOLOL 25 MG TAB PO SCH (08:22)
[2016-10-23] MEDS: ENOXAPARIN 40 MG/0.4 ML SYRINGE (J1650) SC SCH (08:23)
[2016-10-23] MEDS: LACTOBACILLUS ACIDOPHILUS CAP (BACID) PO SCH (08:23)
[2016-10-23 08:24] VITALS: BP 137/69
[2016-10-23] MEDS: amLODIPine 10 MG TAB PO SCH (08:24)
[2016-10-23] MEDS ORDERED: LOSARTAN 50 MG TAB PO SCH (09:00)
--- NOTE | 2016-10-23 11:07 | REP ---
Renal and bladder ultrasound: Comparison is a CT of the abdomen and pelvis dated 01/26/2010. The kidneys are normal size. The right kidney measures 10.6 x 4.5 x 4.3 cm. The left kidney measures 10.3 x 4.3 x 4.1 cm. Renal cortical echogenicity is normal bilaterally. There is minimal distension of the renal pelves bilaterally, possibly secondary to hydration. No definite hydronephrosis. No renal masses, cysts or calculi are identified by ultrasound. The comparison CT a sub centimeter right renal cysts was identified. Doppler assessment of the intraparenchymal arteries reveals resistive index of 0.65 and of the left kidney 0.68. Peak flow velocity at the origin of the right renal artery is 77.2 cm/sec and at the origin of the left renal artery is 57.8 cm/sec. These values are in the normal range. There is no peak aortic flow velocity therefore renal/aorta ratios cannot be calculated. Bladder ultrasound: The the bladder is poorly distended and cannot be further evaluated. Signed by Dinesh Bertrand MD 10/22/2016 08:43 A
--- NOTE | 2016-10-23 12:54 | IPN ---
DATE: 10/22/2016 Patient seen and examined at the bedside. Chart has been reviewed. She complains of generalized headache this morning. No changes in vision. No blurred vision. Some nausea without vomiting. Patient's blood pressure is quite elevated and 180-190. No complaints of chest pain, pressure, or tightness, near syncope, or lightheadedness. Temperature 97.6, pulse 70, respiratory rate 18, blood pressure 184/82, 93% on room air. Generally: Awake, alert, oriented times three, answering questions appropriately. Lungs are clear to auscultation. No wheezing, rales, or rhonchi. No jugular venous distention. Heart: S1, S2. Sinus rhythm. Abdomen is soft, nontender, nondistended. Extremities have no pitting edema. LABORATORY DATA: Has been reviewed. ASSESSMENT AND PLAN: This is a 76-year-old female admitted on 10/21/2016 with complaints of headaches, found to have uncontrolled hypertension, systolic pressure 215/91, admitted for hypertensive urgency. CURRENT ISSUES: 1. Hypertensive urgency. Patient is currently on angiotensin-converting enzyme (MOON) inhibitor and beta-blockade. Will increase Zosyn and titrate clonidine as needed. 2. Hypothyroidism. Will continue on Synthroid. 3. History of reflux. Continue famotidine. DISPOSITION: Patient might be discharged in the morning if stable.
--- NOTE | 2016-10-23 14:35 | DSES ---
DATE OF ADMISSION: 10/21/2016 DATE OF DISCHARGE: 10/23/2016 PRIMARY DISCHARGE DIAGNOSES: 1. Hypertensive urgency. 2. Headache secondary to hypertensive urgency. 3. Hypothyroidism. DISCHARGE MEDICATIONS: - Norvasc 10 mg daily - losartan 50 mg daily - atenolol 25 mg twice a day - Synthroid 100 mcg daily - probiotics one capsule daily - Zantac one tablet daily HOSPITAL COURSE: This is a 76-year-old female who presented to the emergency room with uncontrolled blood pressure being adjusted by her primary care physician. Patient had been having symptoms of headaches on and off for the past 4 weeks. She has noted blood pressure ranging around 215 systolic and was seen by her physician and was started on atenolol with increasing doses, changed to twice a day dosing, as well as losartan. Despite these changes, patient has had no improvement and presents with severe headache. Patient was found to have a blood pressure of 215/91. She was given intravenous labetalol in the emergency room and was admitted for observation in the hospital. CT head shows age appropriate cerebellar and cerebral atrophy with no acute intracranial pathology. The patient was noted to have persistent headache and blood pressure was controlled by increasing losartan to 50 mg daily, atenolol to 25 twice daily, and adding Norvasc 10 daily. For breakthrough headaches with systolic pressure greater than 160 systolic and diastolic greater than 90, clonidine 0.1 every 6 hours was made available. The patient has not required use of clonidine and remains stable on losartan, Norvasc, and atenolol. The patient's blood pressure and headache improved, blood pressure systolic at 112-142, and was discharged with systolic pressure of 137. Renal ultrasound was obtained to rule out renal artery stenosis, the report of which is still pending. LABORATORY DATA ON DISCHARGE: White count 7.7, hemoglobin 13, hematocrit 42, platelet count 373, 70% neutrophils. Sodium 142, potassium 4, chloride 107, bicarbonate 27, BUN 13, creatinine 0.99, glucose 86. IMAGING STUDIES: CT of the head: No intracranial pathology. TIME SPENT ON DISCHARGE: 30 minutes.
--- NOTE | 2016-10-24 04:55 | EDDOCDS ---
Physician Documentation [facility] Name: Erika Reece Age: 76 yrs Sex: Female : 1940 Arrival Date: 10/21/2016 Time: 16:09 Bed Admit Hold Private MD: Ponce Jauregui Disposition: 10/21/16 20:21 Hospitalization ordered by Amanda Vincent for Inpatient Admission. Preliminary diagnosis is Essential (primary) hypertension - Hypertensive Urgency. - Bed requested for 5 Bernard. - Status is Inpatient Admission. tm5 - Condition is Stable. - Problem is new. - Symptoms are unchanged. Historical: - Allergies: PENICILLINS (Rash); - Home Meds: 1. levothyroxine 100 mcg Oral cap 1 cap once daily 2. atenolol 25 mg Oral tab 1 tab 2 times per day 3. losartan 25 mg oral tab 1 tab once daily 4. Zantac 150 mg Oral cap prn - PMHx: Hypertension; Hypothyroidism; - PSHx: Hysterectomy; Appendectomy; - Social history: Smoking status: Patient states former smoker of tobacco. No barriers to communication noted, The patient speaks fluent Romanian. - Family history: Not pertinent. - : The pt / caregiver states he / she is not on anticoagulants. Home medication list is obtained from the patient. - Exposure Risk Screening:: None identified. Vital Signs: 10/21 16:11 BP 215 / 91; Pulse 89; Resp 18 S; Temp 98.4(O); Pulse Ox 96% on R/A; Weight 83.91 kg / dd6 184.99 lbs (R); Height 5 ft. 4 in. (162.56 cm) (R); 16:32 BP 178 / 100 LA Sitting (man/reg); ct3 16:32 BP 192 / 100 RA Sitting (man/reg); ct3 18:08 BP 210 / 103 (auto/); ttb 18:08 Pulse 74 MON; Resp 18; Pulse Ox 95% on R/A; Pain 1/10; ttb 18:33 BP 217 / 109 (auto/); tm5 18:33 Pulse 74 MON; Pulse Ox 95% ; tm5 19:03 BP 215 / 100 (auto/); tm5 19:03 Pulse 72 MON; Resp 18; Pulse Ox 94% on R/A; Pain 6/10; tm5 19:17 BP 214 / 107 (auto/); tm5 19:17 Pulse 72 MON; Resp 20 S; Pulse Ox 96% on R/A; Pain 6/10; tm5 19:33 BP 199 / 92 (auto/); tm5 19:33 Pulse 78 MON; Resp 18 S; Pulse Ox 96% on R/A; tm5 20:03 BP 191 / 93 (auto/); tm5 20:03 Pulse 78 MON; Pulse Ox 94% ; tm5 20:33 BP 195 / 95 (auto/); tm5 20:33 Pulse 76 MON; Resp 18 S; Pulse Ox 94% on R/A; Pain 6/10; tm5 21:33 BP 193 / 95 (auto/); tm5 21:33 Pulse 80 MON; Pulse Ox 95% ; tm5 22:03 BP 181 / 88 (auto/); tm5 22:03 Pulse 76 MON; Resp 20 S; Pulse Ox 96% on R/A; Pain 6/10; tm5 22:33 BP 187 / 91 (auto/); tm5 22:33 Pulse 82 MON; Pulse Ox 95% ; tm5 22:48 BP 191 / 90 (auto/); tm5 22:49 Pulse 78 MON; Resp 20 S; Pulse Ox 96% on R/A; Pain 4/10; tm5 23:03 BP 188 / 89 (auto/); tm5 23:03 Pulse 80 MON; Resp 20 S; Pulse Ox 95% on R/A; Pain 4/10; tm5 23:18 BP 173 / 75 (auto/); sls1 23:18 Pulse 78 MON; Pulse Ox 94% ; sls1 23:33 BP 156 / 76 (auto/); tm5 23:33 Pulse 76 MON; Pulse Ox 94% ; tm5 23:48 BP 154 / 82 (auto/); tm5 23:48 Pulse 76 MON; Resp 18 S; Pulse Ox 94% on R/A; Pain 4/10; tm5 10/22 00:03 BP 147 / 80 (auto/); tm5 00:04 Pulse 76 MON; Resp 20 S; Pulse Ox 94% on R/A; Pain 4/10; tm5 00:18 BP 155 / 86 (auto/); tm5 00:19 Pulse 78 MON; Pulse Ox 94% ; tm5 00:33 BP 150 / 79 (auto/); tm5 00:34 Pulse 76 MON; Pulse Ox 93% ; tm5 00:48 BP 138 / 79 (auto/); tm5 00:49 Pulse 76 MON; Resp 18 S; Pulse Ox 94% on R/A; tm5 01:03 BP 141 / 85 (auto/); tm5 01:04 Pulse 78 MON; Resp 20 S; Pulse Ox 94% on R/A; Pain 3/10; tm5 03:03 BP 118 / 58 (auto/); Pulse 74; Resp 20; Temp 98.3(O); Pulse Ox 98% on R/A; Pain 4/10; tm5 03:03 BP 122 / 58; Pulse 76; Resp 18; Pulse Ox 99% on R/A; Pain 4/10; tm5 03:43 BP 132 / 57; Pulse 74; Resp 20; tm5 10/21 16:11 Body Mass Index 31.75 (83.91 kg, 162.56 cm) dd6 MDM: 10/21 16:57 IV Saline Lock ordered. br1 16:57 Band Booker/Pulse Ox/q 30 min VS ordered. br1 16:57 Atenolol 25 mg PO once ordered. br1 16:57 Losartan 25 mg PO once ordered. br1 16:59 CBC with Diff Ordered. EDMS 16:59 BMP Ordered. EDMS 16:59 ECG WITH READING ER PHYS+CARDIAG ordered. EDMS 16:59 CT Head Without Contrast Ordered. EDMS 18:08 CBC with Diff Reviewed. br1 19:14 Labetalol 10 mg IVP at bolus once over 2 mins ordered. br1 19:14 BMP Reviewed. br1 19:14 CT Head Without Contrast Reviewed. br1 19:18 Financial registration complete. zo 19:47 REPLACED BY [facility] Payment Agreement was scanned into [employer] and attached to record. zo 19:50 BED REQUEST+ADM ordered. EDMS 21:35 Admission / Observation Status ordered. EDMS 21:50 ALDOSTERONE/RENIN RATIO Ordered. EDMS 21:50 URINALYSIS Ordered. EDMS 21:50 BASIC METABOLIC PROFILE Ordered. EDMS 21:52 RENAL US Ordered. EDMS 21:52 RENAL DOPPLER FLOW Ordered. EDMS 21:52 REGULAR DIET ordered. EDMS 22:18 hydrALAZINE 5 mg IV at bolus once ordered. tm5 22:28 Acetaminophen Tablet 650 mg PO once ordered. tm5 01/29 02:32 Admission / Observation Status ordered. EDMS 02:53 Admission / Observation Status ordered. EDMS 03:23 Acetaminophen Tablet 650 mg PO once ordered. tm5 19:29 ECG/EKG was scanned into [employer] and attached to record. kf3 22:23 T-Sheet-- Draft Copy was scanned into [employer] and attached to record. klr Administered Medications: 10/21 17:38 Drug: Atenolol 25 mg [atenolol 25 mg tablet (1 tabs)] Route: PO; pml 19:23 Follow up: Response: Blood pressure is unchanged; No Adverse Reaction tm5 17:38 Drug: Losartan 25 mg [losartan 25 mg tablet (1 tabs)] Route: PO; pml 19:23 Follow up: Response: Blood pressure is unchanged; No Adverse Reaction tm5 19:23 Drug: Labetalol 10 mg [labetalol 5 mg/mL intravenous solution (2 mL)] Route: IVP; Rate: tm5 bolus; Infused Over: 2 mins; Site: right antecubital; 19:51 Follow up: Response: Blood pressure is improved; No Adverse Reaction tm5 22:23 Drug: hydrALAZINE 5 mg [hydralazine 20 mg/mL injection solution] Route: IV; Rate: tm5 bolus; Site: right antecubital; 23:03 Follow up: Response: Blood pressure is unchanged; No Adverse Reaction tm5 22:28 Drug: Acetaminophen 650 mg [acetaminophen 325 mg tablet (2 tabs)] Route: PO; tm5 23:04 Follow up: Response: No Adverse Reaction; Pain is decreased tm5 10/22 03:30 Drug: Acetaminophen 650 mg [acetaminophen 325 mg tablet (2 tabs)] Route: PO; tm5 03:30 Follow up: Response: Pt left department before re-evaluation is appropriate tm5 Signatures: Dispatcher [employer] EDMS Camille Kwok RN RN Sarmad Guzmán Kris, Reg Reg kf3 Thad Valdes MD MD br1 Nanette Maciel RN RN jjr Conner, Teresa, RN RN ttb Redder, Kathie klr Chelo Prakash RN RN tm5 Chelsea Durand RN The chart was reviewed and I authenticate all verbal orders and agree with the evaluation and treatment provided.Attachments: 10/21 19:47 [facility] Payment Agreement zo 10/22 19:29 ECG/EKG kf3 22:23 T-Sheet-- Draft Copy klr Chart Complete MTDD
--- NOTE | 2016-10-24 04:56 | EDDOCDS ---
Nurse's Notes [facility] Name: Erika Reece Age: 76 yrs Sex: Female : 1940 Arrival Date: 10/21/2016 Time: 16:09 Bed Admit Hold Private MD: Ponce Jauregui Diagnosis: Essential (primary) hypertension-Hypertensive Urgency Presentation: 10/21 16:17 Presenting complaint: Patient states: pounding MELTON for past [address] heather Jauregui and medications changed, losartan started this past Sunday pt nauseous since then. Adult Sepsis Screening: The patient does not have new or worsening altered mentation. Patient's respiratory rate is less than 22. Systolic blood pressure is greater than 100. Patient has a qSOFA score of 0- Negative Sepsis Screen. Suicide/Homicide risk assessment- the patient denies having any suicidal and/or homicidal ideations and does not present with any other emotional, behavioral or mental health complaints. Status: Patient is not a social services designee or dependent. Transition of care: patient was not received from another setting of care. 16:17 Acuity: KARL Level 3 jjr 16:17 Method Of Arrival: Walkin/Carried/Asstd jjr Triage Assessment: 16:21 General: Appears in no apparent distress. Pain: Location: right frontal area and right jjr temporal area. Neurological: No deficits noted. Reports headache. 23:15 Cardiovascular: Rhythm is sinus rhythm No ectopy. tm5 Historical: - Allergies: PENICILLINS (Rash); - Home Meds: 1. levothyroxine 100 mcg Oral cap 1 cap once daily 2. atenolol 25 mg Oral tab 1 tab 2 times per day 3. losartan 25 mg oral tab 1 tab once daily 4. Zantac 150 mg Oral cap prn - PMHx: Hypertension; Hypothyroidism; - PSHx: Hysterectomy; Appendectomy; - Social history: Smoking status: Patient states former smoker of tobacco. No barriers to communication noted, The patient speaks fluent Frisian. - Family history: Not pertinent. - : The pt / caregiver states he / she is not on anticoagulants. Home medication list is obtained from the patient. - Exposure Risk Screening:: None identified. Screenin:57 Screening information is obtained from the patient. Fall risk: No risks identified. hs1 Assistance ADL's: requires no assistance with activities of daily living. Abuse/DV Screen: The patient / caregiver reports he/she is: not in a situation that causes fear, pain or injury. Nutritional screening: No deficits noted. Advance Directives: There is no active DNR order. home support is adequate. Assessment: 17:30 General: Appears in no apparent distress, Behavior is appropriate for age, cooperative. hs1 Pain: Location: headache Pain currently is 4 out of 10 on a pain scale. Quality of pain is described as throbbing. Neurological: No deficits noted. Cardiovascular: No deficits noted. Respiratory: Airway is patent Respiratory effort is even, unlabored, Respiratory pattern is regular, symmetrical. Derm: Skin is pink, warm & dry. normal. 18:12 General: Appears in no apparent distress, comfortable, Behavior is appropriate for age, ttb cooperative, pleasant. Pain: Location: face Quality of pain is described as dull. Neurological: Level of Consciousness is awake, alert, Denies blurred vision numbness. Cardiovascular: Rhythm is sinus rhythm No ectopy. Chest pain is denied. Respiratory: Airway is patent Respiratory effort is even, unlabored, Respiratory pattern is regular, symmetrical, Denies cough, shortness of breath. GI: Reports nausea, improved since arrival. Denies need for med at this time. 19:08 General: report given to MIKE Chambers to continue care. Pt continues to rest on ttb stretcher with at bedside. NAD noted. SR on monitor. . 19:15 Reassessment: Patient appears in no apparent distress at this time. Patient states tm5 symptoms have not improved. pt still complains of Headache denies the need for pain meds at this time, Blood pressure still elevated, aware of this . 19:15 Cardiovascular: Rhythm is sinus rhythm No ectopy. Chest pain is denied. tm5 19:52 General: PT AWARE THAT SHE IS GOING TO BE ADMITTED TO THE HOSPITAL TO BETTER CONTROL tm5 HER BLOOD PRESSURE . 22:20 Reassessment: Patient appears in no apparent distress at this time. Patient states tm5 feeling better. Patient states symptoms have improved. family at bedside, pt voices no complaints of at this time . Cardiovascular: Rhythm is sinus rhythm No ectopy. 22:20 Pain: Denies pain. tm5 23:25 General: Spoke with Dr Mcghee regarding pt blood pressure of 173/75 and concern pt not sls1 able to go to Med Surg unit, per Dr Mcghee pt has had known hypertension for 4 weeks, and feels that a blood pressure of 173/75 is stable for pt to go to Med Surg. 10/22 00:49 Reassessment: Patient appears in no apparent distress at this time. pt resting quietly tm5 with eyes closed, resp easy, no s/s of any distress . Cardiovascular: Rhythm is sinus rhythm. 01:56 General: pt ambulated to the bathroom & back with steady gait, voices no complaints at tm5 this time, pt was placed into Hospital bed for holding admission in ER, pt appears very comfortable at this time, lights off & door closed per pt's request. 03:24 Reassessment: pt still complains of slight headache is asking for more Tylenol at this tm5 time . 03:30 General: SBAR was faxed & tubed to [facility] floor . tm5 03:44 General: [facility] ready for pt . tm5 Vital Signs: 10/21 16:11 BP 215 / 91; Pulse 89; Resp 18 S; Temp 98.4(O); Pulse Ox 96% on R/A; Weight 83.91 kg dd6 (R); Height 5 ft. 4 in. (162.56 cm) (R); 16:32 BP 178 / 100 LA Sitting (man/reg); ct3 16:32 BP 192 / 100 RA Sitting (man/reg); ct3 18:08 BP 210 / 103 (auto/); ttb 18:08 Pulse 74 MON; Resp 18; Pulse Ox 95% on R/A; Pain 1/10; ttb 18:33 BP 217 / 109 (auto/); tm5 18:33 Pulse 74 MON; Pulse Ox 95% ; tm5 19:03 BP 215 / 100 (auto/); tm5 19:03 Pulse 72 MON; Resp 18; Pulse Ox 94% on R/A; Pain 6/10; tm5 19:17 BP 214 / 107 (auto/); tm5 19:17 Pulse 72 MON; Resp 20 S; Pulse Ox 96% on R/A; Pain 6/10; tm5 19:33 BP 199 / 92 (auto/); tm5 19:33 Pulse 78 MON; Resp 18 S; Pulse Ox 96% on R/A; tm5 20:03 BP 191 / 93 (auto/); tm5 20:03 Pulse 78 MON; Pulse Ox 94% ; tm5 20:33 BP 195 / 95 (auto/); tm5 20:33 Pulse 76 MON; Resp 18 S; Pulse Ox 94% on R/A; Pain 6/10; tm5 21:33 BP 193 / 95 (auto/); tm5 21:33 Pulse 80 MON; Pulse Ox 95% ; tm5 22:03 BP 181 / 88 (auto/); tm5 22:03 Pulse 76 MON; Resp 20 S; Pulse Ox 96% on R/A; Pain 6/10; tm5 22:33 BP 187 / 91 (auto/); tm5 22:33 Pulse 82 MON; Pulse Ox 95% ; tm5 22:48 BP 191 / 90 (auto/); tm5 22:49 Pulse 78 MON; Resp 20 S; Pulse Ox 96% on R/A; Pain 4/10; tm5 23:03 BP 188 / 89 (auto/); tm5 23:03 Pulse 80 MON; Resp 20 S; Pulse Ox 95% on R/A; Pain 4/10; tm5 23:18 BP 173 / 75 (auto/); sls1 23:18 Pulse 78 MON; Pulse Ox 94% ; sls1 23:33 BP 156 / 76 (auto/); tm5 23:33 Pulse 76 MON; Pulse Ox 94% ; tm5 23:48 BP 154 / 82 (auto/); tm5 23:48 Pulse 76 MON; Resp 18 S; Pulse Ox 94% on R/A; Pain 4/10; tm5 10/22 00:03 BP 147 / 80 (auto/); tm5 00:04 Pulse 76 MON; Resp 20 S; Pulse Ox 94% on R/A; Pain 4/10; tm5 00:18 BP 155 / 86 (auto/); tm5 00:19 Pulse 78 MON; Pulse Ox 94% ; tm5 00:33 BP 150 / 79 (auto/); tm5 00:34 Pulse 76 MON; Pulse Ox 93% ; tm5 00:48 BP 138 / 79 (auto/); tm5 00:49 Pulse 76 MON; Resp 18 S; Pulse Ox 94% on R/A; tm5 01:03 BP 141 / 85 (auto/); tm5 01:04 Pulse 78 MON; Resp 20 S; Pulse Ox 94% on R/A; Pain 3/10; tm5 03:03 BP 118 / 58 (auto/); Pulse 74; Resp 20; Temp 98.3(O); Pulse Ox 98% on R/A; Pain 4/10; tm5 03:03 BP 122 / 58; Pulse 76; Resp 18; Pulse Ox 99% on R/A; Pain 4/10; tm5 03:43 BP 132 / 57; Pulse 74; Resp 20; tm5 10/21 16:11 Body Mass Index 31.75 (83.91 kg, 162.56 cm) dd6 Vitals: 10/21 16:11 Log In Time: October 21, 2016 at 16:09. dd6 ED Course: 16:10 Patient visited by Ben Phillips PCA. dd6 16:10 Ponce Jauregui MD is Private Physician. dd6 16:10 Patient moved to Waiting dd6 16:12 Patient moved to Pre RCE dd6 16:19 Triage Initiated jjr 16:33 Patient visited by Donna Shirley PCA. ct3 16:42 Thad Valdes MD is Attending Physician. br1 16:43 Deepthi Simpson,MIKE is Primary Nurse. br1 16:43 Patient moved to 14 br1 16:56 Patient visited by Thad Valdes MD. br1 17:41 BMP Sent. dls 17:41 CBC with Diff Sent. dls 17:41 Inserted saline lock: 20 gauge in right antecubital area and blood collected. The dls patient tolerated the procedure well. started by Ish Fontaine RN. 17:43 EKG done. (by ED staff). Reviewed by Thad Valdes MD. jrd 17:56 Patient visited by Meredith Fontaine RN. hs1 18:00 The patient / caregiver is instructed regarding the plan of care and ED course. hs1 18:12 Accompanied by Significant Other, Patient has correct armband on for positive ttb identification. Placed in gown. medical records administrator on. Pulse ox on. NIBP on. 18:14 Patient visited by Demetria Quinonez RN. ttb 18:21 CT Head Without Contrast Returned. EDMS 19:08 Patient visited by Demetria Quinonez RN. ttb 19:22 Patient visited by Chelo Prakash RN. tm5 19:47 [facility] Payment Agreement was scanned into [employer] and attached to record. zo 19:48 Patient visited by Chelo Prakash RN. tm5 19:48 ED physician to see patient. tm5 19:51 Patient name changed from Erika\S\M\S\Valvo\S\ to Erika\S\ \S\Valvo. EDMS 20:18 Patient visited by Chelo Prakash RN. tm5 20:21 Amanda Vincent is Hospitalizing Provider. br1 20:[address] Jordan at bedside for eval. tm5 22:51 Patient visited by Chelo Prakash RN. tm5 22:57 Primary Nurse role handed off by Deepthi Simpson RN ms18 23:26 Patient visited by Sandra Knutson RN. sls1 23:30 Patient visited by Chelo Prakash RN. tm5 23:59 Patient moved to Admit Hold sls1 10/22 00:14 Awaiting bed assignment. tm5 00:14 No procedures done that require assistance. tm5 00:51 Patient visited by Chelo Prakash RN. tm5 00:52 Patient visited by Chelo Prakash RN. tm5 01:56 Patient visited by Chelo Prakash RN. tm5 02:56 Patient visited by Chelo Prakash RN. tm5 03:23 Patient visited by Chelo Prakash RN. tm5 03:43 Patient visited by Chelo Prakash RN. tm5 19:29 ECG/EKG was scanned into [employer] and attached to record. kf3 22:23 T-Sheet-- Draft Copy was scanned into [employer] and attached to record. klr Administered Medications: 10/21 17:38 Drug: Atenolol 25 mg [atenolol 25 mg tablet (1 tabs)] Route: PO; pml 19:23 Follow up: Response: Blood pressure is unchanged; No Adverse Reaction tm5 17:38 Drug: Losartan 25 mg [losartan 25 mg tablet (1 tabs)] Route: PO; pml 19:23 Follow up: Response: Blood pressure is unchanged; No Adverse Reaction tm5 19:23 Drug: Labetalol 10 mg [labetalol 5 mg/mL intravenous solution (2 mL)] Route: IVP; Rate: tm5 bolus; Infused Over: 2 mins; Site: right antecubital; 19:51 Follow up: Response: Blood pressure is improved; No Adverse Reaction tm5 22:23 Drug: hydrALAZINE 5 mg [hydralazine 20 mg/mL injection solution] Route: IV; Rate: tm5 bolus; Site: right antecubital; 23:03 Follow up: Response: Blood pressure is unchanged; No Adverse Reaction tm5 :28 Drug: Acetaminophen 650 mg [acetaminophen 325 mg tablet (2 tabs)] Route: PO; tm5 23:04 Follow up: Response: No Adverse Reaction; Pain is decreased tm5 10/22 03:30 Drug: Acetaminophen 650 mg [acetaminophen 325 mg tablet (2 tabs)] Route: PO; tm5 03:30 Follow up: Response: Pt left department before re-evaluation is appropriate tm5 Order Results: Lab Order: CBC with Diff; SPEC'M 10/21/16 17:35 Test: WHITE BLOOD COUNT; Value: 7.7; Range: 4.0-10.0; Units: K/mm3; Status: F Test: RED BLOOD COUNT; Value: 5.05; Range: 4.00-5.40; Units: M/mm3; Status: F Test: HEMOGLOBIN; Value: 13.9; Range: 12.0-16.0; Units: g/dl; Status: F Test: HEMATOCRIT; Value: 42.7; Range: 36.0-47.0; Units: %; Status: F Test: MEAN CORPUSCULAR VOLUME; Value: 84.6; Range: 80.0-96.0; Units: fl; Status: F Test: MEAN CORPUSCULAR HEMOGLOBIN; Value: 27.6; Range: 27.0-33.0; Units: pg; Status: F Test: MEAN CORPUSCULAR HGB CONC; Value: 32.7; Range: 32.0-36.5; Units: g/dl; Status: F Test: RED CELL DISTRIBUTION WIDTH; Value: 13.9; Range: 11.5-14.5; Units: %; Status: F Test: PLATELET COUNT, AUTOMATED; Value: 373; Range: 150-450; Units: k/mm3; Status: F Test: NEUTROPHILS %; Value: 70.0; Range: 36.0-66.0; Abnormal: Above high normal; Units: %; Status: F Test: LYMPH %; Value: 20.3; Range: 24.0-44.0; Abnormal: Below low normal; Units: %; Status: F Test: MONO %; Value: 5.9; Range: 0.0-5.0; Abnormal: Above high normal; Units: %; Status: F Test: EOS %; Value: 1.7; Range: 0.0-3.0; Units: %; Status: F Test: BASO %; Value: 0.8; Range: 0.0-1.0; Units: %; Status: F Test: LARGE UNSTAINED CELL %; Value: 1.3; Range: 0.0-4.0; Units: %; Status: F Test: NEUTROPHILS #; Value: 5.4; Range: 1.8-7.7; Units: K/mm3; Status: F Test: LYMPH #; Value: 1.6; Range: 1.5-4.5; Units: K/mm3; Status: F Test: MONO #; Value: 0.5; Range: 0.0-0.8; Units: K/mm3; Status: F Test: EOS #; Value: 0.1; Range: 0.0-0.50; Units: K/mm3; Status: F Test: BASO #; Value: 0.1; Range: 0.0-0.2; Units: K/mm3; Status: F Test: LARGE UNSTAINED CELL #; Value: 0.1; Range: 0.0-0.4; Units: K/mm3; Status: F Lab Order: [facility]; SPEC'M 10/21/16 17:35 Test: GLUCOSE, FASTING; Value: 96; Range: 83-110; Units: MG/DL; Status: F Test: BLOOD UREA NITROGEN; Value: 11; Range: 7-18; Units: MG/DL; Status: F Test: CREATININE FOR GFR; Value: 0.92; Range: 0.55-1.02; Units: MG/DL; Status: F Test: GLOMERULAR FILTRATION RATE; Value: > 60.0; Range: >39; Status: F Test: SODIUM LEVEL; Value: 141; Range: 136-145; Units: MEQ/L; Status: F Test: POTASSIUM SERUM; Value: 4.0; Range: 3.5-5.1; Units: MEQ/L; Status: F Test: CHLORIDE LEVEL; Value: 106; Range: 98-107; Units: MEQ/L; Status: F Test: CARBON DIOXIDE LEVEL; Value: 27; Range: 21-32; Units: MEQ/L; Status: F Test: ANION GAP; Value: 8; Range: 8-16; Units: MEQ/L; Status: F Test: CALCIUM LEVEL; Value: 8.5; Range: 8.8-10.2; Abnormal: Below low normal; Units: MG/DL; Status: F Test Note: ; Units are mL/min/1.73 m2 Chronic Kidney Disease Staging per NKF: Stage I & II GFR >=60 Normal to Mildly Decreased Stage III GFR 30-59 Moderately Decreased Stage IV GFR 15-29 Severely Decreased Stage V GFR <15 Very Little GFR Left ESRD GFR <15 on HANDKERCHIEF MA[employer]ER Radiology Order: CT Head Without Contrast Test: CT Head Without Contrast REASON FOR EXAMINATION: headache, htn eval for ich; ; CLINICAL HISTORY: Headache.; TECHNIQUE: Multiple axial CT images were obtained through the brain without IV contrast material.; COMMENTS:; There is normal configuration of sella turcica. There are no intra or extra-axial collections. There; is no mass effect or midline shift. There is no evidence of hematoma formation. No hydrocephalus is p; resent. The ventricles are symmetrical. No abnormal calcifications are present.; There is diffuse age-appropriate cerebellar and cerebral atrophy with proportionally dilated ventricl; es and cortical sulci.; There are bilateral periventricular and subcortical white matter hypolucencies compatible with mild c; hronic microvascular disease.; Otherwise, no significant focal abnormalities are seen either in the posterior fossa or supratentoria; l compartment.; IMPRESSION:; 1. 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 Mild chronic microvascular disease.; 3. No evidence of acute intracranial pathology.; Thank you for your kind referral of this patient.; ; ; Outcome: 10/21 20:21 Decision to Hospitalize by Provider. br1 10/22 00:13 CT Study completed. tm5 00:14 Discharge Assessment: patient administered narcotics - no. tm5 03:31 The following High Risk Discharge criteria are identified: None. Admitted to Med/Surg tm5 accompanied by tech, via stretcher, with chart. Condition: good Condition: stable Condition: improved. Property :Personal belongings accompany Pt. 03:54 Patient left the ED. tm5 Signatures: Dispatcher [employer] EDMS Vesna Luna, RN RN dls Sarmad Valle Kris, Reg Reg kf3 Thad Valdes MD MD br1 Nanette Maciel, RN RN jjBen Esquivel, TRUCK LOADER AND UNLOADER TRUCK LOADER AND UNLOADER dd6 Meredith Fontaine RN RN hs1 Donna Shirley, TRUCK LOADER AND UNLOADER TRUCK LOADER AND UNLOADER ct3 Sandra Knutson, RN RN sls1 Chelsea Durand,RN RN Demetria Tolentino RN Deepthi Brenner,RN RN ms18 Romain Farmer, TRUCK LOADER AND UNLOADER TRUCK LOADER AND UNLOADER jrd Carmen Haas Tonya, RN RN tm5 Chart Complete [facility]
== END 2016-10-23 09:45 | disposition home or self-care (01) ==
LOC: M ED 16:09 → M ED INP 21:32 → M MS5PR 10-22 04:05
PROVIDERS: ADMIT Hospitalist; ATTEND General Practice
DX: I10 Essential (primary) hypertension (principal); R51 Headache; E03.9 Hypothyroidism, unspecified; Z88.0 Allergy status to penicillin; K21.9 Gastro-esophageal reflux disease without esophagitis; Z79.899 Other long term (current) drug therapy
CPT/HCPCS: 36415; 70450; 76775; 80048; 82088; 84244; 85025; 93005; 93041; 93975; 96372; 96374; 96375; 99285; G0378; J1650

== ENCOUNTER → 2016-12-19 | Outpatient (CLI) | payer MEDICARE, OTHER ==
[~2016-12-19] MED LIST: AMLO10TA PO; ATEN25TA PO; LOSA25TA8 PO; LOSA50TA20 PO; PROB1TAB PO; PROBCAP14 PO; SYNT100T PO; ZANT1TAB PO
[2016-12-19 09:40] LABS: ALBUMIN 3.5 GM/DL (3.2-5.2); ALBUMIN/GLOBULIN RATIO 0.97 (1.00-1.93); ALKALINE PHOSPHATASE 104 U/L (45-117); ALT/SGPT 22 U/L (12-78); ANION GAP 7 MEQ/L (8-16); AST/SGOT 13 U/L (15-37); BILIRUBIN,TOTAL 0.4 MG/DL (0.2-1.0); BLOOD UREA NITROGEN 12 MG/DL (7-18); CALCIUM LEVEL 8.5 MG/DL (8.8-10.2); CARBON DIOXIDE LEVEL 29 MEQ/L (21-32); CHLORIDE LEVEL 105 MEQ/L (98-107); CHOLESTEROL LEVEL 164 MG/DL (<200); CREATININE FOR GFR 0.93 MG/DL (0.55-1.02); FREE T4 1.06 NG/DL (0.76-1.46); GLOMERULAR FILTRATION RATE > 60.0 (>39); GLUCOSE, FASTING 90 MG/DL (83-110); POTASSIUM SERUM 4.4 MEQ/L (3.5-5.1); SODIUM LEVEL 141 MEQ/L (136-145); TOTAL PROTEIN 7.1 GM/DL (6.4-8.2); TRIGLYCERIDES LEVEL 170 MG/DL (<150)
[2016-12-19 09:46] LABS: MEAN CORPUSCULAR HEMOGLOBIN 27.2 pg (27.0-33.0); MEAN CORPUSCULAR VOLUME 84.9 fl (80.0-96.0); RED CELL DISTRIBUTION WIDTH 14.3 % (11.5-14.5); WHITE BLOOD COUNT 6.7 K/mm3 (4.0-10.0)
== END ==
LOC: M WUC 08:04
PROVIDERS: ATTEND Family Medicine

== ENCOUNTER → 2017-02-13 | Outpatient (CLI) | payer MEDICARE, OTHER ==
[2017-02-13 09:46] LABS: FREE T4 1.3 NG/DL (0.76-1.46)
== END ==
LOC: M WUC 08:02
PROVIDERS: ATTEND Family Medicine
DX: E03.9 Hypothyroidism, unspecified (principal)

== ENCOUNTER → 2017-04-02 | Outpatient (CLI) | payer MEDICARE, OTHER ==
[2017-04-02 10:56] LABS: ANION GAP 8 MEQ/L (8-16); BLOOD UREA NITROGEN 12 MG/DL (7-18); CALCIUM LEVEL 8.7 MG/DL (8.8-10.2); CARBON DIOXIDE LEVEL 25 MEQ/L (21-32); CHLORIDE LEVEL 108 MEQ/L (98-107); CREATININE FOR GFR 0.89 MG/DL (0.55-1.02); GLOMERULAR FILTRATION RATE > 60.0 (>39); GLUCOSE, FASTING 82 MG/DL (83-110); MAGNESIUM LEVEL 2.1 MG/DL (1.8-2.4); POTASSIUM SERUM 4.1 MEQ/L (3.5-5.1); SODIUM LEVEL 141 MEQ/L (136-145)
== END ==
LOC: M LAB 08:30
PROVIDERS: ATTEND Internal Medicine Gastroenterology
DX: K57.90 Diverticulosis of intestine, part unspecified, without perforation or abscess without bleeding (principal)

== ENCOUNTER → 2017-07-11 | Outpatient (CLI) | payer MEDICARE, OTHER | LOC: M WUC 09:46 | PROVIDERS: ATTEND Internal Medicine Gastroenterology | DX: E55.9 Vitamin D deficiency, unspecified (principal) ==

== ENCOUNTER 2017-08-11 08:13 | Emergency (ER) | payer MEDICARE, OTHER ==
[~2017-08-11] VITALS: Ht 160 cm; Wt 79.5 kg
[2017-08-11] MEDS ORDERED: VITA-122 (08:29)
[2017-08-11] MEDS ORDERED: hydrALAZINE INJ 20 MG/ML VIAL IV STA (08:47)
[2017-08-11] MEDS ORDERED: PERCOCET 5MG/325MG TAB PO ONE (09:00)
[2017-08-11] MEDS ORDERED: PROMETHAZINE INJ 25 MG/ML VIAL (J2550) IV ONE (09:00)
[2017-08-11 09:28] LABS: BASO # 0.1 10^3/uL (0.0-0.2); BASO % 1.1 % (0.0-1.0); EOS # 0.1 10^3/uL (0.0-0.50); EOS % 0.8 % (0.0-3.0); IMMATURE GRANULOCYTE % 0.7 % (0-0); LYMPH # 1.4 10^3/uL (1.5-4.5); LYMPH % 19.6 % (24.0-44.0); MEAN CORPUSCULAR HGB CONC 32.3 g/dl (32.0-36.5); MEAN CORPUSCULAR VOLUME 83.5 fl (80.0-96.0); MONO # 0.4 10^3/uL (0.0-0.8); NEUTROPHILS # 5.2 10^3/uL (1.8-7.7); NEUTROPHILS % 72.8 % (36.0-66.0); PLATELET COUNT, AUTOMATED 403 10^3/uL (150-450); RED CELL DISTRIBUTION WIDTH 14.6 % (11.5-14.5); WHITE BLOOD COUNT 7.1 10^3/uL (4.0-10.0)
[2017-08-11 09:33] VITALS: BP 185/80
[2017-08-11 09:55] LABS: CALCIUM LEVEL 8.7 MG/DL (8.8-10.2); CREATININE FOR GFR 0.99 MG/DL (0.55-1.02); GLOMERULAR FILTRATION RATE 58.4 (>39)
[2017-08-11] MEDS ORDERED: KETOROLAC 30 MG/ML VIAL (J1885) IV ONE (10:15)
[2017-08-11 11:26] VITALS: BP 155/74
--- NOTE | 2017-08-11 14:56 | REP ---
CT BRAIN WITHOUT IV CONTRAST: CT brain is performed without IV contrast and compared to prior study of 10/21/2016. There is mild atrophy with no midline shift or mass effect. There is no acute intracranial hemorrhage. Purcell-white differentiation is well maintained. There is no extra-axial fluid collection. Bone window examination is unremarkable. There are vascular calcifications in the carotid siphons. IMPRESSION: Mild atrophy. No acute intracranial hemorrhage, midline shift, or mass. Signed by Dinesh Purcell MD 08/11/2017 11:57 A
== END 2017-08-11 11:57 | disposition home or self-care (01) ==
LOC: M ED 08:13
DX: I10 Essential (primary) hypertension (principal); R42 Dizziness and giddiness; R51 Headache; K57.90 Diverticulosis of intestine, part unspecified, without perforation or abscess without bleeding; F41.9 Anxiety disorder, unspecified; F32.9 Major depressive disorder, single episode, unspecified; Z87.440 Personal history of urinary (tract) infections; E03.9 Hypothyroidism, unspecified; Z86.718 Personal history of other venous thrombosis and embolism; Z79.899 Other long term (current) drug therapy; Z88.0 Allergy status to penicillin
CPT/HCPCS: 70450; 80048; 85025; 96374; 96375; 99284; J1885

== ENCOUNTER → 2017-08-24 | Outpatient (REF) | payer MEDICARE, OTHER ==
[~2017-08-24] MED LIST changes: +VITA-122
[2017-08-24 13:58] LABS: ALBUMIN 3.8 GM/DL (3.2-5.2); ALBUMIN/GLOBULIN RATIO 0.93 (1.00-1.93); ALKALINE PHOSPHATASE 94 U/L (45-117); ALT/SGPT 22 U/L (12-78); ANION GAP 6 MEQ/L (8-16); AST/SGOT 11 U/L (7-37); BILIRUBIN,TOTAL 0.5 MG/DL (0.2-1.0); BLOOD UREA NITROGEN 18 MG/DL (7-18); CALCIUM LEVEL 9.4 MG/DL (8.8-10.2); CARBON DIOXIDE LEVEL 29 MEQ/L (21-32); CHLORIDE LEVEL 103 MEQ/L (98-107); CREATININE FOR GFR 0.97 MG/DL (0.55-1.02); GLOMERULAR FILTRATION RATE 59.8 (>39); GLUCOSE, FASTING 91 MG/DL (83-110); POTASSIUM SERUM 4.4 MEQ/L (3.5-5.1); SODIUM LEVEL 138 MEQ/L (136-145); TOTAL PROTEIN 7.9 GM/DL (6.4-8.2)
== END ==
LOC: M LABNEURO 12:37
PROVIDERS: ATTEND Psychiatry & Neurology Neurology
DX: I10 Essential (primary) hypertension (principal)

== ENCOUNTER 2017-09-26 13:17 | Inpatient (IN) | payer MEDICARE, OTHER ==
[2017-09-26 14:12] LABS: BASO # 0.1 10^3/uL (0.0-0.2); BASO % 0.5 % (0.0-1.0); EOS % 0.3 % (0.0-3.0); HEMATOCRIT 38.8 % (36.0-47.0); HEMOGLOBIN 12.7 g/dl (12.0-16.0); IMMATURE GRANULOCYTE # 0.1 10^3/uL (0-0); IMMATURE GRANULOCYTE % 0.5 % (0-0); LYMPH # 1.3 10^3/uL (1.5-4.5); MEAN CORPUSCULAR HEMOGLOBIN 27.4 pg (27.0-33.0); MEAN CORPUSCULAR HGB CONC 32.7 g/dl (32.0-36.5); MEAN CORPUSCULAR VOLUME 83.6 fl (80.0-96.0); MONO # 0.6 10^3/uL (0.0-0.8); MONO % 5.4 % (0.0-5.0); NEUTROPHILS # 8.3 10^3/uL (1.8-7.7); NEUTROPHILS % 80.3 % (36.0-66.0); PLATELET COUNT, AUTOMATED 333 10^3/uL (150-450); RED BLOOD COUNT 4.64 10^6/uL (4.00-5.40); RED CELL DISTRIBUTION WIDTH 14.6 % (11.5-14.5); WHITE BLOOD COUNT 10.3 10^3/uL (4.0-10.0)
[2017-09-26 14:36] LABS: ALBUMIN 3.7 GM/DL (3.2-5.2); ALBUMIN/GLOBULIN RATIO 1.12 (1.00-1.93); ALKALINE PHOSPHATASE 89 U/L (45-117); ALT/SGPT 22 U/L (12-78); ANION GAP 10 MEQ/L (8-16); AST/SGOT 15 U/L (7-37); BILIRUBIN,DIRECT 0.1 MG/DL (0.0-0.2); BILIRUBIN,TOTAL 0.3 MG/DL (0.2-1.0); BLOOD UREA NITROGEN 12 MG/DL (7-18); CALCIUM LEVEL 8.4 MG/DL (8.8-10.2); CARBON DIOXIDE LEVEL 26 MEQ/L (21-32); CHLORIDE LEVEL 103 MEQ/L (98-107); CPK CREATINE PHOSPHOKINASE 64 U/L (26-192); CREATININE FOR GFR 1.15 MG/DL (0.55-1.02); GLUCOSE, FASTING 141 MG/DL (83-110); MAGNESIUM LEVEL 1.9 MG/DL (1.8-2.4); PHOSPHORUS LEVEL 4.5 MG/DL (2.5-4.9); POTASSIUM SERUM 3.4 MEQ/L (3.5-5.1); SODIUM LEVEL 139 MEQ/L (136-145); TROPONIN I < 0.02 NG/ML (< 0.10)
[2017-09-26 14:41] LABS: MB/CK RELATIVE INDEX 1.56 (< OR =4)
[2017-09-26] MEDS: NS 500 ML IV (15:01)
[2017-09-26] MEDS: POTASSIUM CHLORIDE 10 MEQ SR TABLET PO (15:03)
[2017-09-26] MEDS ORDERED: ACETAMINOPHEN TAB 650MG DOSE (2X325MG) PO (17:45)
[2017-09-26 18:31] LABS: TROPONIN I < 0.02 NG/ML (< 0.10)
[2017-09-26] MEDS: NS 1,000 ML IV (19:20)
[2017-09-26] MEDS: HEPARIN SOD (PORCINE) 5000 UNITS/ML VIAL SC (21:00)
[2017-09-26] MEDS ORDERED: ONDANSETRON 4MG/2ML VIAL (J2405) As Ordered (21:01)
[2017-09-26] MEDS: ONDANSETRON 4MG/2ML VIAL (J2405) IV (21:21)
[2017-09-27 02:38] LABS: TROPONIN I < 0.02 NG/ML (< 0.10)
[2017-09-27] MEDS: LEVOTHYROXINE 112MCG TABLET (0.112MG) PO (05:24)
[2017-09-27] MEDS: ONDANSETRON 4MG/2ML VIAL (J2405) IV ×3 (05:27→17:26)
[2017-09-27 05:48] LABS: HEMATOCRIT 36.6 % (36.0-47.0); HEMOGLOBIN 11.8 g/dl (12.0-16.0); MEAN CORPUSCULAR HEMOGLOBIN 27.3 pg (27.0-33.0); MEAN CORPUSCULAR HGB CONC 32.2 g/dl (32.0-36.5); MEAN CORPUSCULAR VOLUME 84.5 fl (80.0-96.0); PLATELET COUNT, AUTOMATED 308 10^3/uL (150-450); RED BLOOD COUNT 4.33 10^6/uL (4.00-5.40); RED CELL DISTRIBUTION WIDTH 14.6 % (11.5-14.5); WHITE BLOOD COUNT 7.4 10^3/uL (4.0-10.0)
[2017-09-27 06:16] LABS: ANION GAP 7 MEQ/L (8-16); BLOOD UREA NITROGEN 11 MG/DL (7-18); CALCIUM LEVEL 8.4 MG/DL (8.8-10.2); CARBON DIOXIDE LEVEL 27 MEQ/L (21-32); CHLORIDE LEVEL 107 MEQ/L (98-107); CREATININE FOR GFR 0.95 MG/DL (0.55-1.02); GLOMERULAR FILTRATION RATE > 60.0 (>39); GLUCOSE, FASTING 94 MG/DL (83-110); POTASSIUM SERUM 3.9 MEQ/L (3.5-5.1); SODIUM LEVEL 141 MEQ/L (136-145)
[2017-09-27] MEDS: HEPARIN SOD (PORCINE) 5000 UNITS/ML VIAL SC ×2 (08:27→20:31)
[2017-09-27] MEDS: NS 1,000 ML IV (08:27)
[2017-09-27] MEDS: VITAMIN D 1,000 INTERNATIONAL UNITS TABLET PO (08:28)
[2017-09-27] MEDS: LACTOBACILLUS ACIDOPHILUS CAP (BACID) PO (08:28)
[2017-09-27] MEDS: MECLIZINE 25 MG TABLET PO (08:28)
[2017-09-27 09:55] LABS: TROPONIN I < 0.02 NG/ML (< 0.10)
[2017-09-28] MEDS: NS 1,000 ML IV (01:41)
[2017-09-28] MEDS: ONDANSETRON 4MG/2ML VIAL (J2405) IV ×4 (05:41→18:00)
[2017-09-28] MEDS: LEVOTHYROXINE 112MCG TABLET (0.112MG) PO (05:41)
[2017-09-28 05:47] LABS: HEMATOCRIT 34.7 % (36.0-47.0); MEAN CORPUSCULAR HGB CONC 31.7 g/dl (32.0-36.5); MEAN CORPUSCULAR VOLUME 85.3 fl (80.0-96.0); PLATELET COUNT, AUTOMATED 307 10^3/uL (150-450); RED BLOOD COUNT 4.07 10^6/uL (4.00-5.40); RED CELL DISTRIBUTION WIDTH 14.9 % (11.5-14.5); WHITE BLOOD COUNT 5.7 10^3/uL (4.0-10.0)
[2017-09-28 06:04] LABS: ANION GAP 8 MEQ/L (8-16); BLOOD UREA NITROGEN 11 MG/DL (7-18); CALCIUM LEVEL 7.9 MG/DL (8.8-10.2); CARBON DIOXIDE LEVEL 25 MEQ/L (21-32); CHLORIDE LEVEL 111 MEQ/L (98-107); CREATININE FOR GFR 0.88 MG/DL (0.55-1.02); GLOMERULAR FILTRATION RATE > 60.0 (>39); GLUCOSE, FASTING 86 MG/DL (83-110); SODIUM LEVEL 144 MEQ/L (136-145)
[2017-09-28] MEDS: VITAMIN D 1,000 INTERNATIONAL UNITS TABLET PO (09:22)
[2017-09-28] MEDS: HEPARIN SOD (PORCINE) 5000 UNITS/ML VIAL SC ×2 (09:23→21:24)
[2017-09-28] MEDS: LACTOBACILLUS ACIDOPHILUS CAP (BACID) PO (09:23)
[2017-09-28] MEDS: MECLIZINE 25 MG TABLET PO (10:09)
[2017-09-28] MEDS: PREVNAR 13 VACCINE SYRINGE (CPT CODE:90670) IM (18:16)
[2017-09-29] MEDS: ONDANSETRON 4MG/2ML VIAL (J2405) IV ×5 (00:40→23:53)
[2017-09-29 04:07] LABS: HEMATOCRIT 34.9 % (36.0-47.0); HEMOGLOBIN 11.2 g/dl (12.0-16.0); MEAN CORPUSCULAR HEMOGLOBIN 27.3 pg (27.0-33.0); MEAN CORPUSCULAR HGB CONC 32.1 g/dl (32.0-36.5); MEAN CORPUSCULAR VOLUME 84.9 fl (80.0-96.0); PLATELET COUNT, AUTOMATED 309 10^3/uL (150-450); RED BLOOD COUNT 4.11 10^6/uL (4.00-5.40); RED CELL DISTRIBUTION WIDTH 14.5 % (11.5-14.5)
[2017-09-29 04:29] LABS: ANION GAP 6 MEQ/L (8-16); BLOOD UREA NITROGEN 11 MG/DL (7-18); CALCIUM LEVEL 8.1 MG/DL (8.8-10.2); CARBON DIOXIDE LEVEL 29 MEQ/L (21-32); CHLORIDE LEVEL 109 MEQ/L (98-107); CREATININE FOR GFR 0.89 MG/DL (0.55-1.02); GLOMERULAR FILTRATION RATE > 60.0 (>39); GLUCOSE, FASTING 92 MG/DL (83-110); SODIUM LEVEL 144 MEQ/L (136-145)
[2017-09-29] MEDS: LEVOTHYROXINE 112MCG TABLET (0.112MG) PO (06:18)
[2017-09-29] MEDS: MECLIZINE 25 MG TABLET PO ×2 (08:58→14:28)
[2017-09-29] MEDS: VITAMIN D 1,000 INTERNATIONAL UNITS TABLET PO (08:58)
[2017-09-29] MEDS: HEPARIN SOD (PORCINE) 5000 UNITS/ML VIAL SC ×2 (08:58→21:02)
[2017-09-29] MEDS: LACTOBACILLUS ACIDOPHILUS CAP (BACID) PO (08:58)
[2017-09-30 05:37] LABS: HEMATOCRIT 35.2 % (36.0-47.0); HEMOGLOBIN 11.4 g/dl (12.0-16.0); MEAN CORPUSCULAR HEMOGLOBIN 27.4 pg (27.0-33.0); MEAN CORPUSCULAR HGB CONC 32.4 g/dl (32.0-36.5); MEAN CORPUSCULAR VOLUME 84.6 fl (80.0-96.0); PLATELET COUNT, AUTOMATED 316 10^3/uL (150-450); RED BLOOD COUNT 4.16 10^6/uL (4.00-5.40); RED CELL DISTRIBUTION WIDTH 14.7 % (11.5-14.5); WHITE BLOOD COUNT 7.2 10^3/uL (4.0-10.0)
[2017-09-30] MEDS: LEVOTHYROXINE 112MCG TABLET (0.112MG) PO (05:39)
[2017-09-30 05:50] LABS: ANION GAP 7 MEQ/L (8-16); BLOOD UREA NITROGEN 11 MG/DL (7-18); CALCIUM LEVEL 8.1 MG/DL (8.8-10.2); CARBON DIOXIDE LEVEL 29 MEQ/L (21-32); CHLORIDE LEVEL 106 MEQ/L (98-107); CREATININE FOR GFR 0.82 MG/DL (0.55-1.02); GLOMERULAR FILTRATION RATE > 60.0 (>39); GLUCOSE, FASTING 88 MG/DL (83-110); MAGNESIUM LEVEL 1.9 MG/DL (1.8-2.4); POTASSIUM SERUM 3.9 MEQ/L (3.5-5.1); SODIUM LEVEL 142 MEQ/L (136-145)
[2017-09-30] MEDS: ONDANSETRON 4MG/2ML VIAL (J2405) IV ×3 (06:00→17:48)
[2017-09-30] MEDS: HEPARIN SOD (PORCINE) 5000 UNITS/ML VIAL SC ×2 (08:33→21:01)
[2017-09-30] MEDS: LACTOBACILLUS ACIDOPHILUS CAP (BACID) PO (08:33)
[2017-09-30] MEDS: VITAMIN D 1,000 INTERNATIONAL UNITS TABLET PO (08:33)
[2017-09-30] MEDS: LABETALOL 200 MG TAB PO ×2 (08:34→20:56)
[2017-09-30] MEDS: MECLIZINE 25 MG TABLET PO ×3 (08:35→21:01)
[2017-09-30] MEDS ORDERED: MECLIZINE 25 MG TABLET PO (16:00)
[2017-10-01] MEDS: ONDANSETRON 4MG/2ML VIAL (J2405) IV ×2 (00:09→05:47)
[2017-10-01 04:34] LABS: HEMATOCRIT 35.7 % (36.0-47.0); HEMOGLOBIN 11.5 g/dl (12.0-16.0); MEAN CORPUSCULAR HEMOGLOBIN 27.4 pg (27.0-33.0); MEAN CORPUSCULAR HGB CONC 32.2 g/dl (32.0-36.5); PLATELET COUNT, AUTOMATED 323 10^3/uL (150-450); RED CELL DISTRIBUTION WIDTH 14.9 % (11.5-14.5); WHITE BLOOD COUNT 6.6 10^3/uL (4.0-10.0)
[2017-10-01 05:00] LABS: ANION GAP 7 MEQ/L (8-16); BLOOD UREA NITROGEN 14 MG/DL (7-18); CARBON DIOXIDE LEVEL 29 MEQ/L (21-32); CHLORIDE LEVEL 107 MEQ/L (98-107); CREATININE FOR GFR 0.94 MG/DL (0.55-1.02); GLOMERULAR FILTRATION RATE > 60.0 (>39); GLUCOSE, FASTING 92 MG/DL (83-110); MAGNESIUM LEVEL 2.2 MG/DL (1.8-2.4); SODIUM LEVEL 143 MEQ/L (136-145)
[2017-10-01] MEDS: LEVOTHYROXINE 112MCG TABLET (0.112MG) PO (05:45)
[2017-10-01] MEDS: HEPARIN SOD (PORCINE) 5000 UNITS/ML VIAL SC (08:28)
[2017-10-01] MEDS: MECLIZINE 25 MG TABLET PO (08:29)
[2017-10-01] MEDS: LACTOBACILLUS ACIDOPHILUS CAP (BACID) PO (08:29)
[2017-10-01] MEDS: VITAMIN D 1,000 INTERNATIONAL UNITS TABLET PO (08:29)
[2017-10-01] MEDS: LABETALOL 200 MG TAB PO (08:34)
== END 2017-10-01 14:16 | disposition home or self-care (01) | DRG 312 ==
LOC: M ED 13:17 → M ED INP 18:36 → M PCU 23:33
DX: I95.1 Orthostatic hypotension (principal); E03.9 Hypothyroidism, unspecified; I10 Essential (primary) hypertension; K21.9 Gastro-esophageal reflux disease without esophagitis; Z79.899 Other long term (current) drug therapy; I44.0 Atrioventricular block, first degree; M43.02 Spondylolysis, cervical region; Z88.0 Allergy status to penicillin; R42 Dizziness and giddiness; Z86.711 Personal history of pulmonary embolism

== ENCOUNTER → 2017-10-24 | Outpatient (RCR) | payer MEDICARE, OTHER | END | disposition home or self-care (01) | LOC: M PT 15:01 | DX: Z51.89 Encounter for other specified aftercare (principal); H81.13 Benign paroxysmal vertigo, bilateral | CPT/HCPCS: 97162 ==

== ENCOUNTER 2017-10-29 14:01 | Outpatient (RCR) | payer MEDICARE, OTHER | END 2017-11-21 | LOC: M PT 14:01 | DX: Z51.89 Encounter for other specified aftercare (principal); H81.13 Benign paroxysmal vertigo, bilateral | CPT/HCPCS: 97112 ==

== ENCOUNTER 2017-11-04 09:03 | Emergency (ER) | payer MEDICARE, OTHER ==
[2017-11-04] MEDS: hydrALAZINE INJ 20 MG/ML VIAL IV ×2 (09:41)
[2017-11-04 09:45] LABS: BASO # 0.1 10^3/uL (0.0-0.2); BASO % 0.9 % (0.0-1.0); EOS # 0.1 10^3/uL (0.0-0.50); EOS % 1.3 % (0.0-3.0); HEMATOCRIT 40.3 % (36.0-47.0); HEMOGLOBIN 13.4 g/dl (12.0-16.0); IMMATURE GRANULOCYTE % 0.3 % (0-3.0); LYMPH # 1.7 10^3/uL (1.5-4.5); LYMPH % 22.1 % (24.0-44.0); MEAN CORPUSCULAR HEMOGLOBIN 27.1 pg (27.0-33.0); MEAN CORPUSCULAR HGB CONC 33.3 g/dl (32.0-36.5); MEAN CORPUSCULAR VOLUME 81.6 fl (80.0-96.0); MONO # 0.4 10^3/uL (0.0-0.8); MONO % 5.5 % (0.0-5.0); NEUTROPHILS # 5.5 10^3/uL (1.8-7.7); NEUTROPHILS % 69.9 % (36.0-66.0); PLATELET COUNT, AUTOMATED 397 10^3/uL (150-450); RED BLOOD COUNT 4.94 10^6/uL (4.00-5.40); RED CELL DISTRIBUTION WIDTH 14.3 % (11.5-14.5); WHITE BLOOD COUNT 7.8 10^3/uL (4.0-10.0)
[2017-11-04 10:09] LABS: ANION GAP 8 MEQ/L (8-16); BLOOD UREA NITROGEN 10 MG/DL (7-18); CALCIUM LEVEL 8.7 MG/DL (8.8-10.2); CARBON DIOXIDE LEVEL 25 MEQ/L (21-32); CHLORIDE LEVEL 107 MEQ/L (98-107); CREATININE FOR GFR 0.89 MG/DL (0.55-1.30); GLOMERULAR FILTRATION RATE > 60.0 (>39); GLUCOSE, FASTING 116 MG/DL (70-100); POTASSIUM SERUM 3.6 MEQ/L (3.5-5.1); SODIUM LEVEL 140 MEQ/L (136-145)
[2017-11-04] MEDS: ONDANSETRON 4MG/2ML VIAL (J2405) IV ×2 (10:20)
[2017-11-04] MEDS: ACETAMINOPHEN TAB 650MG DOSE (2X325MG) PO ×2 (10:30)
== END 2017-11-04 11:20 | disposition home or self-care (01) ==
LOC: M ED 09:03
DX: I10 Essential (primary) hypertension (principal); R51 Headache; R11.0 Nausea; F41.9 Anxiety disorder, unspecified; F32.9 Major depressive disorder, single episode, unspecified; K21.9 Gastro-esophageal reflux disease without esophagitis
CPT/HCPCS: J2405

== ENCOUNTER → 2018-01-13 | Outpatient (CLI) | payer MEDICARE, OTHER ==
[2018-01-13 18:32] LABS: THYROID STIMULATING HORMONE 0.833 uIU/ML (0.358-3.740)
[2018-01-13 18:32] LABS: FREE T3 2.6 PG/ML (2.2-4.0); FREE T4 1.29 NG/DL (0.76-1.46)
[2018-01-14 11:16] LABS: TOTAL 25(OH) VITAMIN D 27.6 NG/ML (30.0-100.0)
== END ==
LOC: M WUC 11:29
DX: E55.9 Vitamin D deficiency, unspecified (principal); E03.9 Hypothyroidism, unspecified
CPT/HCPCS: 84443

== ENCOUNTER → 2018-12-24 | Outpatient (CLI) | payer MEDICARE, OTHER ==
[~2018-12-24] MED LIST changes: +CARV10CA; +LABE20TAB PO; +LOSA25TA14 PO; -LOSA25TA8 PO; -LOSA50TA20 PO; +LOSA50TA88 PO; +MECL-68 PO; +PROBCAP4 PO; +SYNT112T2 PO; -VITA-122; +VITA-122 PO; +ZANT150T15 PO; -ZANT1TAB PO
--- NOTE | 2018-12-24 12:37 | REP ---
SACRUM/COCCYX, FOUR VIEWS: HISTORY: Sciatica. There is no acute fracture. The L3-4 through L5-S1 intervertebral discs are decreased in height consistent with disc degeneration. There are 5 mm of grade I spondylolisthesis of L5 on S1. IMPRESSION: Degenerative change as described above. Electronically Signed by Abran Haney MD 12/24/2018 12:38 P
--- NOTE | 2018-12-24 12:43 | REP ---
LUMBAR SPINE, FIVE VIEWS: HISTORY: Sciatica. There is no acute fracture. The lumbar intervertebral discs are decreased in height consistent with disc degeneration. Osteophytes are present on L1, 2, 4, and 5. There is narrowing of the L3-4 through L5-S1 facet joints. There are 3 mm of grade 1 spondylolisthesis of L3 on L4 and 5 mm of grade 1 spondylolisthesis of L4 on 5. IMPRESSION: Degenerative change as described above. Electronically Signed by Abran Haney MD 12/24/2018 12:48 P
== END ==
LOC: M WUC 11:48
PROVIDERS: ATTEND Physician Assistant
DX: M25.78 Osteophyte, vertebrae (principal); M51.36 Other intervertebral disc degeneration, lumbar region; M51.37 Other intervertebral disc degeneration, lumbosacral region; M43.16 Spondylolisthesis, lumbar region

== ENCOUNTER → 2019-02-07 | Outpatient (CLI) | payer MEDICARE, OTHER ==
[2019-02-07 12:54] LABS: BASO # 0.1 10^3/uL (0.0-0.2); BASO % 0.9 % (0.0-1.0); EOS # 0.2 10^3/uL (0.0-0.50); EOS % 1.9 % (0.0-3.0); HEMATOCRIT 45.1 % (36.0-47.0); HEMOGLOBIN 14.1 g/dl (12.0-15.5); LYMPH # 2.4 10^3/uL (1.5-4.5); LYMPH % 31.5 % (24.0-44.0); MEAN CORPUSCULAR HEMOGLOBIN 27.4 pg (27.0-33.0); MEAN CORPUSCULAR HGB CONC 31.3 g/dl (32.0-36.5); MEAN CORPUSCULAR VOLUME 87.7 fl (80.0-96.0); MONO # 0.6 10^3/uL (0.0-0.8); MONO % 7.1 % (0.0-5.0); NEUTROPHILS # 4.5 10^3/uL (1.8-7.7); NEUTROPHILS % 58.1 % (36.0-66.0); PLATELET COUNT, AUTOMATED 368 10^3/uL (150-450); RED BLOOD COUNT 5.14 10^6/uL (4.00-5.40); WHITE BLOOD COUNT 7.7 10^3/uL (4.0-10.0)
[2019-02-07 13:29] LABS: ALBUMIN 3.6 GM/DL (3.2-5.2); BILIRUBIN,TOTAL 0.6 MG/DL (0.2-1.0); CALCIUM LEVEL 8.8 MG/DL (8.8-10.2); CHOLESTEROL RISK RATIO 2.307 (<5); CREATININE FOR GFR 0.98 MG/DL (0.55-1.30); FREE T4 1.32 NG/DL (0.76-1.46); GLOMERULAR FILTRATION RATE 58.7 (>39); POTASSIUM SERUM 4.7 MEQ/L (3.5-5.1); THYROID STIMULATING HORMONE 0.71 uIU/ML (0.358-3.740); TOTAL 25(OH) VITAMIN D 22.4 NG/ML (30.0-100.0); TOTAL PROTEIN 7.9 GM/DL (6.4-8.2)
[2019-02-07 17:37] LABS: FREE T3 2.7 PG/ML (2.2-4.0)
== END ==
LOC: M WUC 08:42
PROVIDERS: ATTEND Family Medicine
DX: E55.9 Vitamin D deficiency, unspecified (principal); E03.9 Hypothyroidism, unspecified; I10 Essential (primary) hypertension

== ENCOUNTER 2019-04-24 16:48 | Inpatient (IN) | payer MEDICARE, OTHER ==
[~2019-04-24] VITALS: Ht 162.6 cm; Wt 83.3 kg
[2019-04-24] MEDS ORDERED: ATEN25TA PO (16:55)
[2019-04-24 18:30] LABS: BASO # 0.1 10^3/uL (0.0-0.2); BASO % 0.8 % (0.0-1.0); EOS # 0.1 10^3/uL (0.0-0.50); HEMATOCRIT 39.9 % (36.0-47.0); HEMOGLOBIN 12.8 g/dl (12.0-15.5); LYMPH # 1.8 10^3/uL (1.5-4.5); LYMPH % 18.2 % (24.0-44.0); MEAN CORPUSCULAR HEMOGLOBIN 27.1 pg (27.0-33.0); MEAN CORPUSCULAR HGB CONC 32.1 g/dl (32.0-36.5); MEAN CORPUSCULAR VOLUME 84.4 fl (80.0-96.0); MONO # 0.7 10^3/uL (0.0-0.8); NEUTROPHILS # 7.1 10^3/uL (1.8-7.7); NEUTROPHILS % 72.7 % (36.0-66.0); PLATELET COUNT, AUTOMATED 382 10^3/uL (150-450); RED BLOOD COUNT 4.73 10^6/uL (4.00-5.40); WHITE BLOOD COUNT 9.8 10^3/uL (4.0-10.0)
[2019-04-24 18:56] LABS: ALBUMIN 3.5 GM/DL (3.2-5.2); BILIRUBIN,TOTAL 0.2 MG/DL (0.2-1.0); CALCIUM LEVEL 8.9 MG/DL (8.8-10.2); CREATININE FOR GFR 1.02 MG/DL (0.55-1.30); GLOMERULAR FILTRATION RATE 56.1 (>39); POTASSIUM SERUM 3.9 MEQ/L (3.5-5.1); TOTAL PROTEIN 7.6 GM/DL (6.4-8.2)
[2019-04-24] MEDS ORDERED: diphenhydrAMINE INJ 50MG/ML VIAL (J1200) IV ONE (19:45)
[2019-04-24] MEDS ORDERED: KETOROLAC 30 MG/ML VIAL (J1885) IV ONE (19:45)
[2019-04-24] MEDS ORDERED: METOCLOPRAMIDE INJ 10MG/2ML VIAL (J2765) IV ONE (19:45)
[2019-04-24] MEDS ORDERED: NS 1,000 ML IV ONE (19:45)
--- NOTE | 2019-04-24 19:49 | REPVR ---
EXAM: CT Head Without Contrast EXAM DATE/TIME: 04/24/2019 6:47 PM CLINICAL HISTORY: 78 years old, female; Dizziness TECHNIQUE: Imaging protocol: Computed tomography images of the head without contrast. Radiation optimization: All CT scans at this facility use at least one of these dose optimization techniques: automated exposure control; mA and/or kV adjustment per patient size (includes targeted exams where dose is matched to clinical indication); or iterative reconstruction. COMPARISON: CT Head without contrast 09/26/2017 2:09:05 PM FINDINGS: Brain: There is a new hypodensity within the left aly radiata, likely representing a subacute lacunar infarct. There are periventricular foci of white matter hypodensity, likely representing small vessel ischemic disease in a patient this age. The acuity of the white matter disease is indeterminate. The white-mohamud differentiation is otherwise preserved demonstrating no acute territorial type infarct. There is mild prominence of the frontal sulci, compatible with atrophy. No acute intracranial hemorrhage is seen. Midline shift: There is no midline shift. Ventricles: No ventriculomegaly. Bones/joints: The calvarium demonstrates no evidence for a depressed fracture. Sinuses: Visualized sinuses are unremarkable. No fluid levels. Mastoid air cells: No mastoid effusion. Soft tissues: Unremarkable. Vasculature: Intracranial atherosclerosis visualized. IMPRESSION: 1. There is a new hypodensity within the left aly radiata, likely representing a subacute lacunar infarct. If further evaluation is clinically indicated, an MRI of the brain is recommended. 2. No acute intracranial hemorrhage. 3. There are periventricular foci of white matter hypodensity, likely representing small vessel ischemic disease in a patient this age. 4. Mild atrophy. Electronically signed by: Doug Ochoa On 04/24/2019 19:49:15 PM
[2019-04-24] MEDS ORDERED: LABETALOL HCL 100 MG/20 ML VIAL IV STA (20:35)
[2019-04-24] MEDS: DOCUSATE SODIUM 100 MG CAP PO SCH (21:00)
[2019-04-24] MEDS ORDERED: ATORVASTATIN 20 MG TAB PO SCH (21:45)
[2019-04-24] MEDS ORDERED: MOM 30ML SUSPENSION UDC PO PRN (21:45)
[2019-04-24] MEDS ORDERED: ASPIRIN 81 MG ENTERIC TAB PO ONE (21:45)
[2019-04-24] MEDS ORDERED: amLODIPine 5 MG TAB PO SCH (21:45)
[2019-04-24] MEDS ORDERED: MAALOX 30 ML SUSP *UDC PO PRN (21:45)
[2019-04-24] MEDS ORDERED: CVS1CAP2 PO (21:58)
--- NOTE | 2019-04-24 22:37 | HPEPDOC ---
General Date of Admission Apr 24, 2019 at 21:38 Date of Service: Apr 24, 2019 Chief Complaint The patient is a 78-year-old female admitted with a reason for visit of Hypertensive Emergency, Stroke. Source: Patient, RN/MD, Old records Severity: Severe Associated Symptoms: Headaches, Dizziness History of Present Illness 78 year old female with PMH of Hypertension, hypothyroid, vertigo, dizziness, disbalance in walking., GERD, esophagitis, H/o DVT of the left leg after hysterectomy in came to the ED for excruciating headache for 2 days along with dizziness and nausea which she though was her Vertigo. Today she checked her bp at home and SBP was over 200 so came to the ED. In the ED she was found to have a BP of 244/ 117 on arrival. She had a CT head done which showed subacute lacunar infarct in the left aly radiata. She is being admitted for Stroke and hypertensive emergency. Patient continues to complain of headache all over the head associated with nausea , dizziness and dry heaves. IT is dull throbbing in nature about 8/10 in intensity. She also has been having trouble walking and feels disbalanced. She denies any new weakness but says her left leg is always weaker since her DVT there in Home Medications Scheduled Atenolol (Atenolol) 25 Mg Tablet, 0.5 TAB PO BID, (Reported) Cholecalciferol (Vitamin D3) (Vitamin D3) 1,000 Unit Tab, 1,000 UNITS PO DAILY, (Reported) Lactobacillus Combo No.10 (Probiotic) 1 Each Capsule, 1 CAP PO DAILY, (Reported) Levothyroxine Sodium (Synthroid) 112 Mcg Tab, 112 MCG PO DAILY, (Reported) Allergies Coded Allergies: Penicillins (Verified Allergy, Unknown, 04/24/19) Past Medical History Medical History Hypertension, hypothyroid, vertigo, dizziness, disbalance in walking., GERD, esophagitis, H/o DVT of the left leg after hysterectomy in Surgical History hysterectomy, appendectomy, cholecystectomy, ingunal hernia surgery as as child Family History Significant Family History: Cancer (daughter ), Heart disease (father), Hypertension (mother) Social History * Smoker: Denies Alcohol: rarely Drugs: denies A-FIB/CHADSVASC A-FIB History Current/History of A-Fib/PAF?: No Review of Systems Constitutional: Denies: Chills, Fever, Night Sweats Eyes: Denies: Pain, Vision change ENT: Reports: Head Aches Skin: Denies: Rash, Lesions, Breakdown Pulmonary: Denies: Dyspnea, Cough Cardiovascular: Denies: Chest Pain, Palpitations, Orthopnea, Paroxysmal Noc. Dyspnea, Lt Headedness Gastrointestinal: Reports: Nausea (dry heaves); Denies: Vomiting, Abdominal Pain, Diarrhea Genitourinary: Denies: Dysuria, Frequency, Incontinence, Retention Musculoskeletal: Denies: Neck Pain, Back Pain, Joint Pain, Muscle Pain, Spasms Physical Examination General Exam: Positive: Alert, Cooperative, Mild Distress Eye Exam: Positive: PERRLA, Conjunctiva & lids normal, EOMI; Negative: Sclera icteric ENT Exam: Positive: Atraumatic, Mucous membr. moist/pink, Pharynx Normal Neck Exam: Positive: Supple; Negative: JVD, thyromegaly Chest Exam: Positive: Clear to auscultation, Normal air movement Heart Exam: Positive: Rate Normal, Regular Rhythm, Normal S1, Normal S2; Negative: Murmurs, Rubs Telemetry: Positive: No significant arrhythmia Abdomen Exam: Positive: Normal bowel sounds, Soft; Negative: Tenderness, Hepatospenomegaly Extremity Exam: Positive: Normal pulses; Negative: Clubbing, Cyanosis, Edema Skin Exam: Positive: Nl turgor and temperature; Negative: Breakdown, Lesion Neuro Exam: Positive: Normal Speech, Strength at 5/5 X4 ext, Normal Tone, Reflexes 2+ Psych Exam: Positive: Mental status NL, Memory Intact, Oriented x 3 Vital Signs Vital Signs Date Time Temp Pulse Resp B/P (MAP) Pulse Ox O2 Delivery O2 Flow Rate FiO2 04/24/19 21:33 84 96 04/24/19 21:30 189/94 (125) 04/24/19 17:33 Room Air 04/24/19 17:18 16 04/24/19 16:48 98.7 Laboratory Data Labs 24H Laboratory Tests 2 04/24/19 18:19: Immature Granulocyte % (Auto) 0.3, White Blood Count 9.8, Red Blood Count 4.73, Hemoglobin 12.8, Hematocrit 39.9, Mean Corpuscular Volume 84.4, Mean Corpuscular Hemoglobin 27.1, Mean Corpuscular Hemoglobin Concent 32.1, Red Cell Distribution Width 14.7H, Platelet Count 382, Neutrophils (%) (Auto) 72.7H, Lymphocytes (%) ( Auto) 18.2L, Monocytes (%) (Auto) 7.0H, Eosinophils (%) (Auto) 1.0, Basophils (%) (Auto) 0.8, Neutrophils # (Auto) 7.1, Lymphocytes # (Auto) 1.8, Monocytes # (Auto) 0.7, Eosinophils # (Auto) 0.1, Basophils # (Auto) 0.1, Nucleated Red Blood Cells % (auto) 0.0, Anion Gap 7L, Glomerular Filtration Rate 56.1, Blood Urea Nitrogen 16, Creatinine 1.02, Sodium Level 141, Potassium Level 3.9, Chloride Level 107, Carbon Dioxide Level 27, Calcium Level 8.9, Aspartate Amino Transf (AST/SGOT) 15, Alanine Aminotransferase (ALT/SGPT) 24, Alkaline Phosphatase 97, Total Bilirubin 0.2, Total Protein 7.6, Albumin 3.5, Albumin/Globulin Ratio 0.85L CBC/BMP Laboratory Tests 04/24/19 18:19 Red Blood Count 4.73, Mean Corpuscular Volume 84.4, Mean Corpuscular Hemoglobin 27.1, Mean Corpuscular Hemoglobin Concent 32.1, Red Cell Distribution Width 14.7 H, Neutrophils (%) (Auto) 72.7 H, Lymphocytes (%) (Auto) 18.2 L, Monocytes (%) (Auto) 7.0 H, Eosinophils (%) (Auto) 1.0, Basophils (%) (Auto) 0.8, Neutrophils # (Auto) 7.1, Lymphocytes # (Auto) 1.8, Monocytes # (Auto) 0.7, Eosinophils # (Auto) 0.1, Basophils # (Auto) 0.1, Calcium Level 8.9, Aspartate Amino Transf (AST/SGOT) 15, Alanine Aminotransferase (ALT/SGPT) 24, Alkaline Phosphatase 97, Total Bilirubin 0.2, Total Protein 7.6, Albumin 3.5 Assessment/Plan 78 year old female with PMH of Hypertension, hypothyroid, vertigo, dizziness, disbalance in walking., GERD, esophagitis, H/o DVT of the left leg after hy sterectomy in came to the ED for excruciating headache for 2 days along with dizziness and nausea which she though was her Vertigo. Today she checked her bp at home and SBP was over 200 so came to the ED. In the ED she was found to have a BP of 244/ 117 on arrival. She had a CT head done which showed subacute lacunar infarct in the left aly radiata. She is being admitted for Stroke and hypertensive emergency. Subacute ischemic stroke [facility] will get MRI and MRA and Carotid US will place in telemetry Allow permissive hypertension with SBP of 150-180 and DBP of 80-90 Labetelol IV will start on amlodipine bid. asa, statin. consult neurology Hypertensive emergency will allow permissive hypertension due to the stroke labetelol IV and amlodipine. Hypothyroid continue synthroid Plan / VTE VTE Prophylaxis Ordered?: Yes ITZEL BOOTH MD Apr 24, 2019 22:37
[2019-04-25] VITALS (8 sets, daily range): BP systolic 108–165; BP diastolic 57–92
[2019-04-25] MEDS: LABETALOL HCL 100 MG/20 ML VIAL IV SCH ×2 (02:45→08:44)
[2019-04-25 04:19] LABS: BASO # 0.1 10^3/uL (0.0-0.2); BASO % 0.7 % (0.0-1.0); EOS # 0.1 10^3/uL (0.0-0.50); EOS % 1.2 % (0.0-3.0); HEMATOCRIT 36.4 % (36.0-47.0); HEMOGLOBIN 11.6 g/dl (12.0-15.5); LYMPH # 2.6 10^3/uL (1.5-4.5); LYMPH % 26.2 % (24.0-44.0); MEAN CORPUSCULAR HGB CONC 31.9 g/dl (32.0-36.5); MEAN CORPUSCULAR VOLUME 84.7 fl (80.0-96.0); MONO # 0.7 10^3/uL (0.0-0.8); MONO % 6.8 % (0.0-5.0); NEUTROPHILS # 6.4 10^3/uL (1.8-7.7); NEUTROPHILS % 64.8 % (36.0-66.0); PLATELET COUNT, AUTOMATED 344 10^3/uL (150-450); WHITE BLOOD COUNT 9.9 10^3/uL (4.0-10.0)
[2019-04-25 04:37] LABS: CREATININE FOR GFR 0.97 MG/DL (0.55-1.30); GLOMERULAR FILTRATION RATE 59.4 (>39); POTASSIUM SERUM 3.6 MEQ/L (3.5-5.1)
[2019-04-25] MEDS: LEVOTHYROXINE 112MCG TABLET (0.112MG) PO SCH (06:02)
--- NOTE | 2019-04-25 08:05 | REP ---
Clinical: Acute stroke . Technique: Purcell scale and color Doppler evaluation using linear high frequency transducer Findings: Two-dimensional purcell scale and color images demonstrate minimal mixed atheromatous plaquing with laminar flow and no appreciable narrowing. Color Doppler interrogation demonstrates normal arterial wave patterns and velocities with no significant spectral broadening. Live vertebral artery is identified and demonstrates normal flow direction. Right vertebral artery not visualized. RIGHT (cm/s) LEFT (cm/s) ICA peak systolic velocity 49.3 53.4 ICA diastolic velocity 17.8 14.4 ECA peak systolic velocity 53.6 48.2 CCA peak systolic velocity 59.6 57.5 ICA/CCA ratio 0.83 0.93 Impression: 1. No hemodynamically significant areas of narrowing or stenosis appreciated. Based on set standards narrowing falls within the less than 50% range. 2. Right vertebral artery not visualized. Electronically Signed by Go Santana MD 04/25/2019 07:57 A
[2019-04-25] MEDS: DOCUSATE SODIUM 100 MG CAP PO SCH ×3 (08:43→20:05)
[2019-04-25] MEDS: ASPIRIN 81 MG ENTERIC TAB PO SCH (08:44)
[2019-04-25] MEDS: ENOXAPARIN 40 MG/0.4 ML SYRINGE (J1650) SC SCH (08:44)
[2019-04-25] MEDS ORDERED: amLODIPine 5 MG TAB PO SCH (09:00)
[2019-04-25 09:54] LABS: CHOLESTEROL RISK RATIO 2.169 (<5)
[2019-04-25 10:24] LABS: HEMOGLOBIN A1c 6.1 %
[2019-04-25] MEDS ORDERED: ACETAMINOPHEN TAB 650MG DOSE (2X325MG) PO PRN (11:30)
--- NOTE | 2019-04-25 13:34 | REP ---
MR angiography the brain without contrast: History: Stroke. Technique: 3-D [id number] MR angiography of the brain is acquired in the usual fashion and maximal intensity projection images were generated in rotational format about the vertical and horizontal axes. In addition, source axial T1-weighted images are viewed in cine mode. MR angiographic findings: The distal vertebral arteries are patent and co-dominant. Basilar artery is a little tortuous but widely patent. The posterior cerebral and superior cerebellar vessels are normal and symmetric. The distal internal carotid arteries are unremarkable. Anterior and middle cerebral arteries appear intact. There is no visible das aneurysm or arteriovenous malformation. Impression: Unremarkable MR angiography the brain. Electronically Signed by Sukh Beatty MD 04/25/2019 01:25 P
--- NOTE | 2019-04-25 13:48 | REP ---
MRI BRAIN WITHOUT CONTRAST: HISTORY: Stroke. COMPARISON STUDY: July 31, 2009 TECHNIQUE: Axial and sagittal imaging planes are utilized for T1- and T2-weighted scans. Sequences include spin-echo, fast spin echo, FLAIR, and diffusion weighted sequences. FINDINGS: No bony calvarial lesion is seen. Craniocervical junction and upper cervical cord are normal in appearance. There is no MR evidence of significant paranasal sinus disease. No intraorbital abnormality is appreciated. Diffusion-weighted scans show no evidence of acute ischemia. There is no evidence of intracranial hemorrhage. No mass, infarct, or midline shift is seen. T2-weighted scans and FLAIR images demonstrate scattered foci of periventricular and subcortical white matter T2 hyperintensity, consistent with chronic microvascular ischemic changes. These are slightly more numerous but otherwise unchanged when compared with the July 31, 2009 prior exam. IMPRESSION: No acute intracranial abnormality. Chronic microvascular atherosclerotic ischemic changes again noted. Electronically Signed by Sukh Beatty MD 04/25/2019 03:48 P
[2019-04-25] MEDS ORDERED: SLF 3 ML SYR IV PRN (15:15)
--- NOTE | 2019-04-25 17:13 | ECHO ---
DATE OF PROCEDURE: 04/25/2019 REFERRING PHYSICIAN: Radha Aleman MD INDICATION: Acute stroke. HEIGHT: 64 inches WEIGHT: 84 kg 2D MEASUREMENTS: Aortic annulus: 2.1 cm Aortic root: 3.6 cm Left atrium: 3.0 cm Ventricular septum: 1.17 cm Posterior wall: 1.15 cm Left ventricle diastole: 3.9 cm Inferior vena cava: 1.7 cm DOPPLER MEASUREMENTS: Trace aortic regurgitation. Aortic valve velocity: 108 cm/s LVOT velocity: 82.0 cm/s LVOT VTI: 22.0 cm Mitral E velocity: 62.1 cm/s Mitral A velocity: 102 cm/s Mitral deceleration time: 231 ms Trace tricuspid regurgitation. Estimated right ventricle systolic pressure 24-29 mmHg assuming a right atrial pressure of 5-10 mmHg. Pulmonary artery systolic pressure 28 mmHg. MITRAL ANNULAR TISSUE DOPPLER: E prime septal: 4.9 cm/s E prime lateral: 7.1 cm/s DESCRIPTION: Rhythm was sinus. Image quality was fair. No pericardial effusion. This study also included a bubble study. CONCLUSIONS: 1. Detection of a small amount of bubbles in the right atrium following injection of saline bubbles which were probably late in occurrence. Bubbles were not seen in the left atrium, but only in the left ventricle as far as the left cardiac chambers. Opacification of the right ventricle and right atrium where the bubbles was excellent. Suspicious for right to left intracardiac or extracardiac shunting. 2. Normal left ventricle internal dimensions and wall thickness. Normal regional LV wall motion and wall thickening. Normal LV systolic function. LVEF 65% by visual estimate. Grade I LV diastolic dysfunction. 3. Very mild aortic valve sclerosis of a three-cuspid aortic valve. Trace aortic regurgitation. 4. Otherwise normal appearing echocardiogram Doppler findings. RECOMMENDATIONS: Suggest further evaluation with a transesophageal echocardiogram with bubble study. My preference and recommendation would be to do the LAUREN in the outpatient procedures so that the patient can adequately perform Valsalva maneuver release during LAUREN which is almost always difficult to accomplish in the OR in a patient receiving propofol IV monitored anesthetic care.
--- NOTE | 2019-04-25 19:11 | IPNPDOC ---
Subjective Date Seen The patient was seen on 04/25/19. Subjective Chief Complaint/HPI 78f with hx of chronic vertigo, thyroid disease, htn, gerd, dvt admitted with hypertensive emergency and concern for stroke. MRI negative for cva seen by neuro bps have been better without intervention full ROS was performed and negative except as above Objective Physical Examination General Exam: Positive: Alert, Cooperative, Mild Distress Eye Exam: Positive: PERRLA, Conjunctiva & lids normal, EOMI; Negative: Sclera icteric ENT Exam: Positive: Atraumatic, Mucous membr. moist/pink, Pharynx Normal Neck Exam: Positive: Supple; Negative: JVD, thyromegaly Chest Exam: Positive: Clear to auscultation, Normal air movement Heart Exam: Positive: Rate Normal, Regular Rhythm, Normal S1, Normal S2; Negative: Murmurs, Rubs Telemetry: Positive: No significant arrhythmia Abdomen Exam: Positive: Normal bowel sounds, Soft; Negative: Tenderness, Hepatospenomegaly Extremity Exam: Positive: Normal pulses; Negative: Clubbing, Cyanosis, Edema Skin Exam: Positive: Nl turgor and temperature; Negative: Breakdown, Lesion Neuro Exam: Positive: Normal Speech, Strength at 5/5 X4 ext, Normal Tone, Reflexes 2+ Psych Exam: Positive: Mental status NL, Memory Intact, Oriented x 3 Assessment /Plan Assessment 78f p/w htn emergency htn continue atenolol at increased dose no need for permissive htn will monitor bps overnight on atenolol dc statin as ldl 40 and no stroke seen vertigo prn meclizine outpt vestibular therapy thyroid stable continue synthroid echo findings concern for R->L shunt? outpatient follow up for karen Plan/VTE VTE Prophylaxis Ordered?: Yes VS, I&O, 24H, Fishbone Vital Signs/I&O Vital Signs Date Time Temp Pulse Resp B/P (MAP) Pulse Ox O2 Delivery O2 Flow Rate FiO2 04/25/19 16:00 97.6 80 20 128/92 (104) 96 04/24/19 17:33 Room Air I&O- Last 24 Hours up to 6 AM 04/25/19 06:00 Output Total 2100 ml Balance -2100 ml Laboratory Data 24H LABS Laboratory Tests 2 04/25/19 03:55: Immature Granulocyte % (Auto) 0.3, White Blood Count 9.9, Red Blood Count 4.30, Hemoglobin 11.6L, Hematocrit 36.4, Mean Corpuscular Volume 84.7, Mean Corpuscular Hemoglobin 27.0, Mean Corpuscular Hemoglobin Concent 31.9L, Red Cell Distribution Width 14.8H, Platelet Count 344, Neutrophils (%) (Auto) 64.8, Lymphocytes (%) (Auto) 26.2, Monocytes (%) (Auto) 6.8H, Eosinophils (%) (Auto) 1.2, Basophils (%) (Auto) 0.7, Neutrophils # (Auto) 6.4, Lymphocytes # (Auto) 2.6, Monocytes # (Auto) 0.7, Eosinophils # (Auto) 0.1, Basophils # (Auto) 0.1, Nucleated Red Blood Cells % (auto) 0.0, Anion Gap 8, Glomerular Filtration Rate 59.4, Estimated Mean Plasma Glucose 128H, Hemoglobin A1c 6.1, Calcium Level 8.0L, Triglycerides Level 117, LDL Cholesterol 46, Total Cholesterol 128, Non- HDL Cholesterol (LDL + VLDL) 69, Total HDL Cholesterol 59, Cholesterol/HDL Ratio 2.169 CBC/BMP Laboratory Tests 04/25/19 03:55 Red Blood Count 4.30, Mean Corpuscular Volume 84.7, Mean Corpuscular Hemoglobin 27.0, Mean Corpuscular Hemoglobin Concent 31.9 L, Red Cell Distribution Width 14.8 H, Neutrophils (%) (Auto) 64.8, Lymphocytes (%) (Auto) 26.2, Monocytes (%) (Auto) 6.8 H, Eosinophils (%) (Auto) 1.2, Basophils (%) (Auto) 0.7, Neutrophils # (Auto) 6.4, Lymphocytes # (Auto) 2.6, Monocytes # (Auto) 0.7, Eosinophils # (Auto) 0.1, Basophils # (Auto) 0.1 ERIC MCGEE MD Apr 25, 2019 19:11
[2019-04-25] MEDS: ATENOLOL 25 MG TAB PO SCH (20:04)
[2019-04-25] MEDS: SLF 3 ML SYR IV SCH (20:05)
[2019-04-25] MEDS ORDERED: ATENOLOL 12.5MG PER 1/2 TABLET PO SCH (21:00)
--- NOTE | 2019-04-25 22:00 | ECGEPIP ---
[facility] - ED Test Date: 2019-04-24 Pat Name: ABHI MÁRQUEZ Department: Room: - Gender: Female Legal Entity Controller: gris : 1940 Requested By: Rambo Garcia Order Number: [id number] Reading MD: Rambo Madrid Measurements Intervals [place] Rate: 74 P: 32 WV: 192 QRS: 6 QRSD: 81 T: -1 QT: 379 QTc: 422 Interpretive Statements SINUS RHYTHM MINIMAL VOLTAGE CRITERIA FOR LVH, CONSIDER NORMAL VARIANT NONSPECIFIC T-WAVE ABNORMALITY SIMILAR TO 11/04/17 Electronically Signed on 04-25-2019 22:00:47 EDT by Rambo Madrid
[2019-04-26 04:00] VITALS: BP 146/69
[2019-04-26 05:51] LABS: BASO # 0.1 10^3/uL (0.0-0.2); EOS # 0.3 10^3/uL (0.0-0.50); EOS % 4.7 % (0.0-3.0); HEMATOCRIT 38.5 % (36.0-47.0); LYMPH # 1.9 10^3/uL (1.5-4.5); LYMPH % 27.9 % (24.0-44.0); MEAN CORPUSCULAR HEMOGLOBIN 27.1 pg (27.0-33.0); MEAN CORPUSCULAR HGB CONC 31.2 g/dl (32.0-36.5); MEAN CORPUSCULAR VOLUME 86.9 fl (80.0-96.0); MONO # 0.4 10^3/uL (0.0-0.8); MONO % 6.2 % (0.0-5.0); NEUTROPHILS # 4.2 10^3/uL (1.8-7.7); NEUTROPHILS % 60.1 % (36.0-66.0); PLATELET COUNT, AUTOMATED 328 10^3/uL (150-450); RED BLOOD COUNT 4.43 10^6/uL (4.00-5.40)
[2019-04-26 06:11] LABS: BLOOD UREA NITROGEN 11 MG/DL (7-18); CALCIUM LEVEL 8.6 MG/DL (8.8-10.2); CARBON DIOXIDE LEVEL 28 MEQ/L (21-32); CHLORIDE LEVEL 111 MEQ/L (98-107); CREATININE FOR GFR 0.94 MG/DL (0.55-1.30); GLOMERULAR FILTRATION RATE > 60.0 (>39); GLUCOSE, FASTING 84 MG/DL (70-100); POTASSIUM SERUM 4.1 MEQ/L (3.5-5.1); SODIUM LEVEL 143 MEQ/L (136-145)
[2019-04-26] MEDS: LEVOTHYROXINE 112MCG TABLET (0.112MG) PO SCH (06:23)
[2019-04-26] MEDS: SLF 3 ML SYR IV SCH (06:23)
[2019-04-26 08:00] VITALS: BP 139/64
--- NOTE | 2019-04-26 08:49 | CR ---
DATE OF CONSULTATION: 04/25/2019 REFERRING PHYSICIAN: Dr. Radha Aleman REASON FOR CONSULTATION: Hypertensive emergency and headache and dizziness. HISTORY OF PRESENT ILLNESS: Erika Reece is a 78-year-old woman with a history of dizziness and vertigo for the last [address] Deshpande for her dizziness. She also has a history of chronic diarrhea and follows with a engine research engineer in [place]. It appears from my discussion with her today that she has labile blood pressure. She was unable to tolerate labetalol and Edarbyclor in past. In one of these medicine trials she passed out and had a head injury in 2018. She has off-and-on dizziness described as if she is in the boat and rocking back and forth. She feels off balance sometimes. Yesterday she developed severe headache and nausea with increased dizziness. Her blood pressure was found to be 244/[address] scan of head reportedly showed a subacute lacunar infarct in left aly radiata. She was admitted for question of stroke and hypertensive emergency. Her headache is better today. Headache was 8 out of 10 in intensity yesterday. She felt nausea and dizziness. She felt off balance and difficulty walking. She denies any neck pain, back pain or seizures, dysphagia, dysarthria, diplopia, urinary incontinence. DIAGNOSTIC STUDIES: MRI scan of brain was reviewed and showed chronic and old small vessel ischemic disease of brain without acute disease. MRA brain was normal. Carotid ultrasound showed less than 50% stenosis reportedly. CBC was within normal limits. Hemoglobin A1c was 6.1. Normal metabolic profile. PAST MEDICAL HISTORY: Hypertension. Hypothyroidism. Vertigo. Dizziness. Acid reflux. Hysterectomy. History of left leg deep vein thrombosis (DVT) after hysterectomy. Appendectomy. Cholecystectomy. Inguinal hernia repair. FAMILY HISTORY: Her daughter from the Jovel sarcoma which metastasized through her entire body. Father had heart disease and mother had hypertension. SOCIAL HISTORY: She denies smoking, alcohol or illicit drugs. HISTORY OF HOME MEDICATIONS: - atenolol 12.5 mg p.o. b.i.d. - levothyroxine 112 mcg p.o. daily - vitamin D3 1000 units p.o. daily - lactobacillus ALLERGIES: 1. PENICILLIN. REVIEW OF SYSTEMS: All systems were reviewed and found to be noncontributory except as mentioned in history present illness. PHYSICAL EXAMINATION: Temperature 97.6, pulse 80, respiratory rate 20, blood pressure 128/92, 96% saturation on room air. Heart: Regular rate and rhythm. Lungs: Clear to auscultation. Abdomen: Soft, nontender, nondistended. No pedal edema. No musculoskeletal abnormalities or rash. No signs of meningeal irritation. No tremor. The patient is awake, alert, oriented to place, person and time. Normal speech comprehension and repetition. Extraocular muscles are intact. No facial weakness. Tongue and uvula are midline. Recent and distant memory is intact. No nystagmus. Visual rosales are full to confrontation. 5/5 strength in all four extremities. Deep tendon flexes are 1+ throughout. Normal sensation throughout. Gait is normal. ASSESSMENT: 1. Hypertensive emergency with labile blood pressure. 2. No evidence of acute stroke. 3. Chronic small-vessel ischemic disease of brain. 4. Less than 50% bilateral carotid artery stenosis. PLAN: 1. Continue appropriate management of her hypertension. She has seen cardiology in past as well. Keep systolic blood pressure below 140 and diastolic blood pressure below 90. 2. Aspirin 81 mg p.o. daily. 3. Vestibular rehabilitation exercises. 4. Follow-up with Dr. Deshpande as planned.
[2019-04-26] MEDS: DOCUSATE SODIUM 100 MG CAP PO SCH (09:00)
[2019-04-26] MEDS ORDERED: ASPI81TAEC PO (09:01)
[2019-04-26] MEDS ORDERED: misc (09:01)
[2019-04-26] MEDS ORDERED: ATEN25TA PO (09:01)
[2019-04-26] MEDS: ENOXAPARIN 40 MG/0.4 ML SYRINGE (J1650) SC SCH (09:04)
[2019-04-26] MEDS: ASPIRIN 81 MG ENTERIC TAB PO SCH (09:04)
[2019-04-26 09:06] VITALS: BP 139/64
[2019-04-26] MEDS: ATENOLOL 25 MG TAB PO SCH (09:06)
--- NOTE | 2019-04-29 20:09 | DS.PDOC ---
Discharge Summary General Date of Admission Apr 24, 2019 at 21:38 Date of Discharge 8.. Discharge Summary PROCEDURES PERFORMED DURING STAY: [None]. ADMITTING DIAGNOSES: 1. accelerated htn 2. subacute cva DISCHARGE DIAGNOSES: 1. accelerated htn 2. vertigo COMPLICATIONS/CHIEF COMPLAINT: Hypertensive Emergency, Stroke. HISTORY OF PRESENT ILLNESS: 78 year old female with PMH of Hypertension, hypothyroid, vertigo, dizziness, disbalance in walking., GERD, esophagitis, H/o DVT of the left leg after hysterectomy in came to the ED for excruciating headache for 2 days along with dizziness and nausea which she though was her Vertigo. Today she checked her bp at home and SBP was over 200 so came to the ED. In the ED she was found to have a BP of 244/ 117 on arrival. She had a CT head done which showed subacute lacunar infarct in the left aly radiata. She is being admitted for Stroke and hypertensive emergency. Patient continues to complain of headache all over the head associated with nausea , dizziness and dry heaves. IT is dull throbbing in nature about 8/10 in intensity. She also has been having trouble walking and feels disbalanced. She denies any new weakness but says her left leg is always weaker since her DVT there in HOSPITAL COURSE: She was admitted to the hospitalist service. Due to concern of a subacute cva her hypertension was treated conservatively. She underwent screening for reversible stroke risk factors including telemetry, a1c, lipid panel, echo and carotid us which were unremarkable. She had an MRI/MRA of the brain which was also unremarkable and notably did not reveal a cva. She was evaluated by PT and neurology and deemed stable for dc. DISCHARGE MEDICATIONS: Please see below. ALLERGIES: Please see below. PHYSICAL EXAMINATION ON DISCHARGE: VITAL SIGNS: Please see below. General Exam: Positive: Alert, Cooperative, Mild Distress Eye Exam: Positive: PERRLA, Conjunctiva & lids normal, EOMI; Negative: Sclera icteric ENT Exam: Positive: Atraumatic, Mucous membr. moist/pink, Pharynx Normal Neck Exam: Positive: Supple; Negative: JVD, thyromegaly Chest Exam: Positive: Clear to auscultation, Normal air movement Heart Exam: Positive: Rate Normal, Regular Rhythm, Normal S1, Normal S2; Negative: Murmurs, Rubs Telemetry: Positive: No significant arrhythmia Abdomen Exam: Positive: Normal bowel sounds, Soft; Negative: Tenderness, Hepatospenomegaly Extremity Exam: Positive: Normal pulses; Negative: Clubbing, Cyanosis, Edema Skin Exam: Positive: Nl turgor and temperature; Negative: Breakdown, Lesion Neuro Exam: Positive: Normal Speech, Strength at 5/5 X4 ext, Normal Tone, Reflexes 2+ Psych Exam: Positive: Mental status NL, Memory Intact, Oriented x 3 LABORATORY DATA: Please see below. ACTIVITY: [As tolerated]. DIET: cardiac, low salt DISCHARGE PLAN: vestibular therapy DISPOSITION: Home, Self-Care. DISCHARGE CONDITION: [Stable]. Vital Signs/I&Os Vital Signs Date Time Temp Pulse Resp B/P (MAP) Pulse Ox O2 Delivery O2 Flow Rate FiO2 04/26/19 09:06 66 139/64 04/26/19 08:00 97.9 16 96 04/24/19 17:33 Room Air Discharge Medications Scheduled Aspirin (Aspirin EC) 81 Mg Tablet.dr, 81 MG PO QAM Atenolol (Atenolol) 25 Mg Tablet, 1 TAB PO BID Cholecalciferol (Vitamin D3) (Vitamin D3) 1,000 Unit Tab, 1,000 UNITS PO DAILY, (Reported) Lactobacillus Combo No.10 (Probiotic) 1 Each Capsule, 1 CAP PO DAILY, (Reported) Levothyroxine Sodium (Synthroid) 112 Mcg Tab, 112 MCG PO DAILY, (Reported) Miscellaneous Medications [misc] Vestibular Therapy frequency to be determined by therapist dx vertigo Allergies Coded Allergies: Penicillins (Verified Allergy, Unknown, 04/24/19) ERIC MCGEE MD Apr 29, 2019 20:09
== END 2019-04-26 10:39 | disposition home or self-care (01) | DRG 305 ==
LOC: M ED 16:48 → M ED INP 21:38 → M PCU 04-25 00:07
PROVIDERS: ADMIT Internal Medicine Nephrology; ATTEND Hospitalist
DX: I16.1 Hypertensive emergency (principal); R42 Dizziness and giddiness; I10 Essential (primary) hypertension; E03.9 Hypothyroidism, unspecified; K21.9 Gastro-esophageal reflux disease without esophagitis; Z86.718 Personal history of other venous thrombosis and embolism; Z79.82 Long term (current) use of aspirin; Z79.899 Other long term (current) drug therapy; Z88.0 Allergy status to penicillin; R26.89 Other abnormalities of gait and mobility

== ENCOUNTER → 2019-06-11 | Outpatient (REF) | payer MEDICARE, OTHER ==
[~2019-06-11] MED LIST changes: +ASPI81TAEC PO; +CVS1CAP2 PO; +misc
[2019-06-11 13:35] LABS: FREE T4 1.25 NG/DL (0.76-1.46); RHEUMATOID FACTOR QUANT < 10.0 IU/ML (<15.0); TOTAL PROTEIN 7.3 GM/DL (6.4-8.2)
[2019-06-11 13:37] LABS: FOLATE 9.5 NG/ML; VITAMIN B12 LEVEL 407 PG/ML
[2019-06-12 13:16] LABS: ALBUMIN 3.77 GM/DL (3.29-5.55); ALBUMIN % 51.6 % (55.8-66.1); ALPHA-1-GLOBULIN % 4.6 % (2.9-4.9); ALPHA-1-GLOBULINS 0.34 GM/DL (0.17-0.41); ALPHA-2-GLOBULINS 0.83 GM/DL (0.42-0.99); ALPHA-2-GLOBULINS % 11.4 % (7.1-11.8); BETA-1-GLOBULINS 0.56 GM/DL (0.28-0.60); BETA-1-GLOBULINS % 7.7 % (4.7-7.2); BETA-2-GLOBULINS 0.47 GM/DL (0.19-0.55); BETA-2-GLOBULINS % 6.4 % (3.2-6.5); GAMMA GLOBULIN % 18.3 % (11.1-18.8); GAMMA GLOBULINS 1.34 GM/DL (0.65-1.58)
[2019-06-15 00:10] LABS: ANTINUCLEAR ANTIBODIES DIRECT Negative (Negative); VITAMIN B1 LEVEL WHOLE BLOOD 143.8 nmol/L (66.5-200.0); VITAMIN B6,PYRIDOXAL PHOSPHATE 2.6 ug/L (2.0-32.8); VITAMIN E(ALPHA TOCOPHEROL) 8.3 mg/L (9.0-29.0); VITAMIN E(GAMMA TOCOPHEROL) 2.1 mg/L (0.5-4.9)
== END ==
LOC: M LABNEURO 09:05
PROVIDERS: ATTEND Psychiatry & Neurology Neurology
DX: R20.2 Paresthesia of skin (principal); M79.2 Neuralgia and neuritis, unspecified; E06.9 Thyroiditis, unspecified

== ENCOUNTER → 2019-08-31 | Outpatient (CLI) | payer MEDICARE, OTHER ==
[2019-08-31 21:22] LABS: FREE T3 2.2 PG/ML (2.2-4.0); FREE T4 1.31 NG/DL (0.76-1.46); THYROID STIMULATING HORMONE 1.84 uIU/ML (0.358-3.740)
== END ==
LOC: M WUC 11:21
PROVIDERS: ATTEND Family Medicine
DX: E03.9 Hypothyroidism, unspecified (principal)

== ENCOUNTER → 2020-03-05 | Outpatient (CLI) | payer MEDICARE, OTHER ==
[~2020-03-05] MED LIST changes: -MECL-68 PO; +MECL1TAB31 PO
[2020-03-05 16:21] LABS: HEMATOCRIT 41.3 % (36.0-47.0); HEMOGLOBIN 13.1 g/dl (12.0-15.5); MEAN CORPUSCULAR HEMOGLOBIN 27.3 pg (27.0-33.0); MEAN CORPUSCULAR HGB CONC 31.7 g/dl (32.0-36.5); PLATELET COUNT, AUTOMATED 380 10^3/uL (150-450); WHITE BLOOD COUNT 8.5 10^3/uL (4.0-10.0)
[2020-03-05 16:52] LABS: ALBUMIN 3.5 GM/DL (3.2-5.2); ALT/SGPT 27 U/L (12-78); BILIRUBIN,TOTAL 0.4 MG/DL (0.2-1.0); BLOOD UREA NITROGEN 11 MG/DL (7-18); CALCIUM LEVEL 8.7 MG/DL (8.8-10.2); CARBON DIOXIDE LEVEL 24 MEQ/L (21-32); CHLORIDE LEVEL 107 MEQ/L (98-107); CREATININE FOR GFR 0.88 MG/DL (0.55-1.30); FREE T3 2.3 PG/ML (2.2-4.0); FREE T4 1.38 NG/DL (0.76-1.46); GLOMERULAR FILTRATION RATE > 60.0 (>39); GLUCOSE, FASTING 93 MG/DL (70-100); POTASSIUM SERUM 3.9 MEQ/L (3.5-5.1); SODIUM LEVEL 140 MEQ/L (136-145); TOTAL PROTEIN 7.2 GM/DL (6.4-8.2)
[2020-03-05 17:20] LABS: TOTAL 25(OH) VITAMIN D 26.7 NG/ML (30.0-100.0)
== END ==
LOC: M WUC 10:56
PROVIDERS: ATTEND Family Medicine
DX: E55.9 Vitamin D deficiency, unspecified (principal); E03.9 Hypothyroidism, unspecified; R53.83 Other fatigue

== ENCOUNTER → 2020-04-11 | Outpatient (CLI) | payer MEDICARE, OTHER ==
--- NOTE | 2020-04-11 11:44 | REP ---
REASON: Atraumatic pain. There is tricompartmental marginal osteophytosis with asymmetric patellofemoral joint space narrowing and medial compartmental narrowing. There is no acute fracture, dislocation, or subluxation. IMPRESSION: Chronic changes, as described above. Electronically Signed by Bradly Jasso DO 04/11/2020 12:07 P
== END ==
LOC: M WUC 09:34
PROVIDERS: ATTEND Physician Assistant
DX: M25.761 Osteophyte, right knee (principal)

== ENCOUNTER → 2020-06-25 | Outpatient (CLI) | payer MEDICARE, OTHER ==
[2020-06-25 16:27] LABS: HEMATOCRIT 43.8 % (36.0-47.0); HEMOGLOBIN 13.9 g/dl (12.0-15.5); MEAN CORPUSCULAR HEMOGLOBIN 27.6 pg (27.0-33.0); MEAN CORPUSCULAR HGB CONC 31.7 g/dl (32.0-36.5); MEAN CORPUSCULAR VOLUME 87.1 fl (80.0-96.0); PLATELET COUNT, AUTOMATED 401 10^3/uL (150-450); RED BLOOD COUNT 5.03 10^6/uL (4.00-5.40); WHITE BLOOD COUNT 7.6 10^3/uL (4.0-10.0)
[2020-06-25 16:45] LABS: CALCIUM LEVEL 9.2 MG/DL (8.8-10.2); GLOMERULAR FILTRATION RATE 57.2 (>39); POTASSIUM SERUM 4.1 MEQ/L (3.5-5.1)
== END ==
LOC: M WUC 12:03
PROVIDERS: ATTEND Family Medicine
DX: Z01.812 Encounter for preprocedural laboratory examination (principal)

== ENCOUNTER → 2020-07-03 | Outpatient (CLI) | payer MEDICARE, OTHER | LOC: M LABSMTC 08:06 | PROVIDERS: ATTEND Orthopaedic Surgery | DX: Z01.812 Encounter for preprocedural laboratory examination (principal); Z20.828 Contact with and (suspected) exposure to other viral communicable diseases ==

== ENCOUNTER → 2020-11-29 | Outpatient (CLI) | payer MEDICARE, OTHER ==
[~2020-11-29] MED LIST changes: +ASPI-569 PO; -ASPI81TAEC PO
[2020-11-29 09:58] LABS: HEMATOCRIT 42.8 % (36.0-47.0); HEMOGLOBIN 13.4 g/dl (12.0-15.5); MEAN CORPUSCULAR HGB CONC 31.3 g/dl (32.0-36.5); MEAN CORPUSCULAR VOLUME 86.3 fl (80.0-96.0); PLATELET COUNT, AUTOMATED 376 10^3/uL (150-450); RED BLOOD COUNT 4.96 10^6/uL (4.00-5.40); WHITE BLOOD COUNT 7.8 10^3/uL (4.0-10.0)
[2020-11-29 10:43] LABS: ALBUMIN 3.7 GM/DL (3.2-5.2); BILIRUBIN,TOTAL 0.5 MG/DL (0.2-1.0); CREATININE FOR GFR 0.96 MG/DL (0.55-1.30); FREE T3 1.8 PG/ML (2.2-4.0); FREE T4 0.86 NG/DL (0.76-1.46); GLOMERULAR FILTRATION RATE 59.8 (>39); POTASSIUM SERUM 4.5 MEQ/L (3.5-5.1); THYROID STIMULATING HORMONE 8.28 uIU/ML (0.358-3.740); TOTAL PROTEIN 7.3 GM/DL (6.4-8.2)
[2020-11-29 10:53] LABS: TOTAL 25(OH) VITAMIN D 16.5 NG/ML (30.0-100.0)
== END ==
LOC: M WUC 08:19
PROVIDERS: ATTEND Family Medicine
DX: E55.9 Vitamin D deficiency, unspecified (principal); E03.9 Hypothyroidism, unspecified; I10 Essential (primary) hypertension

== ENCOUNTER → 2021-01-26 | Outpatient (CLI) | payer MEDICARE, OTHER ==
[2021-01-26 12:40] LABS: FREE T4 1.16 NG/DL (0.76-1.46); THYROID STIMULATING HORMONE 2.1 uIU/ML (0.358-3.740)
== END ==
LOC: M WUC 10:05
PROVIDERS: ATTEND Family Medicine
DX: E03.9 Hypothyroidism, unspecified (principal)

== ENCOUNTER → 2021-06-16 | Outpatient (CLI) | payer MEDICARE, OTHER ==
--- NOTE | 2021-06-16 11:55 | REP ---
INDICATION: SCIATICA. COMPARISON: Comparison radiographs December 24, 2018. TECHNIQUE: Five views of the lumbar spine. FINDINGS: Lumbar vertebral body heights are preserved. Alignment is normal and unchanged. There is mild discogenic spurring anteriorly at the visualized lower thoracic and at the upper lumbar levels unchanged. Vascular calcification is observed. Oblique radiographs demonstrate osteoarthritic facet sclerosis and narrowing at L4-5 and L3-4 and to a lesser extent L5-S1 bilaterally. SI joints and sacrum are intact. Psoas margins are symmetric. There are clips in right upper quadrant of the abdomen. Visualized bowel gas pattern is normal. IMPRESSION: Degenerative spondylosis changes. No acute bony abnormality. <Electronically signed by Sam Beatty > 06/16/21 [id number]
--- NOTE | 2021-06-16 11:57 | REP ---
INDICATION: SCIATICA. COMPARISON: Comparison radiograph is from July 31, 2009. TECHNIQUE: AP and frogleg views of the left hip. FINDINGS: Left femoral head is smooth and rounded hip joint space is preserved. There is mild superior acetabular spurring. No erosive changes seen. No fracture is noted. There is tendon insertion site spurring on the greater trochanter on the left. There is diffuse osteopenia. IMPRESSION: Mild osteoarthritic change. Tendon insertion site spurring on the greater trochanter. No acute bony abnormality.. <Electronically signed by Sam Beatty > 06/16/21 [id number]
== END ==
LOC: M WUC 11:03
PROVIDERS: ATTEND Family Medicine
DX: M54.32 Sciatica, left side (principal)

== ENCOUNTER → 2022-01-16 | Outpatient (CLI) | payer MEDICARE, OTHER ==
[~2022-01-16] MED LIST changes: +LOSA25TA13 PO; -LOSA25TA14 PO; +LOSA50TA28 PO; -LOSA50TA88 PO
== END ==
LOC: M WUC 08:02
PROVIDERS: ATTEND Physician Assistant Medical
DX: M25.571 Pain in right ankle and joints of right foot (principal)

== ENCOUNTER → 2022-02-17 | Outpatient (CLI) | payer MEDICARE, OTHER | LOC: M WHC 10:08 | PROVIDERS: ATTEND Family Medicine | DX: Z12.31 Encounter for screening mammogram for malignant neoplasm of breast (principal) ==

== ENCOUNTER → 2022-03-01 | Outpatient (CLI) | payer MEDICARE, OTHER | LOC: M WHC 13:42 | PROVIDERS: ATTEND Family Medicine | DX: N63.11 Unspecified lump in the right breast, upper outer quadrant (principal); R92.2 Inconclusive mammogram | CPT/HCPCS: 76642; 77065; G0279 ==

== ENCOUNTER → 2022-10-17 | Outpatient (CLI) | payer MEDICARE, OTHER | LOC: M WHC 10:22 | PROVIDERS: ATTEND Family Medicine | DX: R92.2 Inconclusive mammogram (principal) | CPT/HCPCS: 77065; G0279 ==

== ENCOUNTER → 2023-12-07 | Outpatient (CLI) | payer MEDICARE, OTHER ==
[~2023-12-07] MED LIST changes: +MECL-209 PO; -MECL1TAB31 PO
== END ==
LOC: M WHC 11:02
PROVIDERS: ATTEND Family Medicine
DX: Z12.31 Encounter for screening mammogram for malignant neoplasm of breast (principal)